=== PATIENT | male | born 1940 | race Caucasian/White ===

== ENCOUNTER → 2017-09-18 | Outpatient (CLI) | payer MEDICARE, OTHER | END | disposition home or self-care (01) | LOC: KCIC US 09:24 | DX: R42 Dizziness and giddiness (principal); R55 Syncope and collapse; E11.42 Type 2 diabetes mellitus with diabetic polyneuropathy; Z87.01 Personal history of pneumonia (recurrent); Z87.891 Personal history of nicotine dependence | CPT/HCPCS: 93880 ==

== ENCOUNTER 2018-02-12 10:29 | Observation (INO) | payer MEDICARE, OTHER ==
[~2018-02-12] VITALS: Ht 152.4 cm; Wt 106.6 kg
[~2018-02-12 10:29] MED LIST: ASCO500C PO; ASPI-630 PO; CALC480G PO; CHOL100013 PO; DIPH25CA58 PO; ESOM20CA PO; GABA-586 PO; GLUC1TAB71 PO; MULT-208 PO; OXYC1TAB7 PO; VIT1TABL PO
[2018-02-12] MEDS ORDERED: CALCIUM GLUCONATE 1,000 MG/10 ML VIAL. IVP ONE (11:00)
[2018-02-12 11:07] LABS: BASO % 0 % (0-3); EOS % 0 % (0-3); HEMATOCRIT 40.3 % (39.0-53.0); HEMOGLOBIN 13.9 g/dL (13.0-17.5); LYMPH # 0.3 x10^3/uL (1.0-4.8); LYMPH % 3 % (24-48); MEAN CORPUSCULAR HEMOGLOBIN 33 pg (25-35); MEAN CORPUSCULAR HGB CONC 34 g/dL (31-37); MEAN CORPUSCULAR VOLUME 95 fL (79-100); MONO # 1.4 x10^3/uL (0.0-1.1); MONO % 12 % (0-9); NEUT % 85 % (31-73); PLATELET COUNT 176 x10^3/uL (140-400); RED BLOOD COUNT 4.24 x10^6/uL (4.30-5.70); RED CELL DISTRIBUTION WIDTH 13.6 % (11.5-14.5); WHITE BLOOD COUNT 11.8 x10^3/uL (4.0-11.0)
[2018-02-12] MEDS ORDERED: IV NORMAL SALINE 1000ML BAG 1,000 ML IV ONE (11:15)
--- NOTE | 2018-02-12 11:20 | PDOC1 ---
History and Physical Date of Admission Date of Admission DATE: 02/12/18 TIME: 11:19 Identification/Chief Complaint Chief Complaint NOT MY PATIENT, NOTE IS VOID/ ERROR Past Medical History Past Medical History PAST MEDICAL HISTORY: cataracts, osteoarthritis, reduced hearing, peripheral neuropathy. prior DVT at an old port site. has hyperlipidemia, history of pneumonia, history of sleep apnea for which he has been treated with BiPAP. colorectal cancer in the past and polyps. 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 chemo in 2014 for his colon cancer and a port then has been removed. PAST SURGICAL HISTORY: Include cataract extractions, carpal tunnel repair, Lap-Band in 2010, colon resection in 2013, Noam-en-Y gastric bypass in 2012, cholecystectomy 1995, ventral and inguinal hernia repairs, hydrocele repair in 2004, right hip replacement in 2007. IMMUNIZATION: His flu vaccines are up-to-date, his pneumococcal vaccines is up-to-date. ALLERGIES: HE HAS ALLERGIES TO STATINS AND MEPERIDINE. HOME MEDICATIONS: Include gabapentin 300 mg t.i.d., Nexium 20 mg at bedtime, vitamin C daily, aspirin 81 mg daily, multivitamin daily, B complex vitamin daily and 1000 mg of vitamin D daily. FAMILY HISTORY: Noncontributory. SOCIAL HISTORY: Former smoker. Current Medications Current Medications Current Medications Calcium Gluconate (Calcium Gluconate) 1,000 mg 1X ONCE IVP Last administered on 02/12/18at 10:52; Start 02/12/18 at 11:00; Stop 02/12/18 at 11:01; Status DC Sodium Chloride 1,000 ml @ 1,000 mls/hr 1X ONCE IV Last administered on at 11:18; Start 02/12/18 at 11:15; Stop 02/12/18 at 12:14 Active Scripts Active Oxycodone-Acetaminophen 5-325 (Oxycodone Hcl/Acetaminophen) 1 Each Tablet 1 Tab PO PRN Q4HRS PRN Reported Gabapentin 300 Mg Capsule 300 Mg PO TID Nexium Capsule (Esomeprazole Magnesium) 20 Mg Capsule.dr 20 Mg PO DAILYAC Aspirin 81 Mg Tab.chew 1 Tab PO DAILY Vitamin D (Cholecalciferol (Vitamin D3)) 1,000 Unit Capsule 1 Cap PO DAILY Vitamin C (Ascorbic Acid) 500 Mg Capsule.er 500 Mg PO Brain Ujnjh-Kfh-Yu Q10 Tablet (Vit B Cmplx & C#11/Ca/Dha/Q10) 1 Each Tablet 1 Each PO Multi-Day Vitamins (Multivitamin) 1 Each Tablet 1 Tab PO DAILY Allergies Allergies: Coded Allergies: Oxfunud-Qmz-Bjx Reductase Inhibitor (Verified Allergy, Intermediate, body aches, 04/02/17) meperidine (Verified Allergy, Intermediate, Hallucinations, 04/02/17) VTE Prophylaxis Ordered VTE Prophylaxis Devices: Yes VTE Pharmacological Prophylaxi: Yes MIKAELA JONES MD Feb 12, 2018 11:20
--- NOTE | 2018-02-12 11:21 | RAD ---
Exam: AP portable chest History: Fever, weakness, confusion. Comparison: January 27, 2008. Findings: The heart and mediastinal structures are within normal limits for size. Lungs are without infiltrate. No pleural effusion or pneumothorax is identified. Old right clavicular fracture is seen. Impression: 1. No acute cardiopulmonary process. Electronically signed by: Mor Ramirez MD (02/12/2018 11:17 AM) [place] [id number]
--- NOTE | 2018-02-12 11:43 | RAD ---
CT of the head without contrast, 02/12/2018: HISTORY: Confusion, memory loss The lateral and third ventricles are moderately dilated. The degree of ventricular dilatation appears out of proportion relative to the mild degree of cerebral atrophy. There is no shift of the midline structures. There is no evidence of acute intracranial hemorrhage or mass effect. Several faint bilateral deep white matter lucencies are noted compatible with chronic ischemic change. IMPRESSION: 1. Mild bilateral deep white matter lucencies compatible with chronic ischemic change. 2. Ventricular dilatation appears out of proportion relative to the degree of cerebral atrophy raising the possibility of normal pressure hydrocephalus. 3. No acute intracranial abnormality is detected. PQRS Compliance Statement: One or more of the following individualized dose reduction techniques were utilized for this examination: 1. Automated exposure control 2. Adjustment of the mA and/or kV according to patient size 3. Use of iterative reconstruction technique Electronically signed by: Armani Young MD (02/12/2018 11:39 AM) [facility]
[2018-02-12 11:48] LABS: % BANDS 15 % (0-9); % LYMPHS 2 % (24-48); % MONOS 7 % (0-10); % SEGS 76 % (35-66); ANISOCYTOSIS SLIGHT; PLT ESTIMATE ADEQUATE (ADEQUATE)
[2018-02-12 11:51] LABS: CALCIUM 9.2 mg/dL (8.5-10.1)
[2018-02-12 11:52] LABS: CREATININE 0.9 mg/dL (0.7-1.3); GFR 81.6; MAGNESIUM 1.8 mg/dL (1.8-2.4); POTASSIUM 3.7 mmol/L (3.5-5.1)
--- NOTE | 2018-02-12 11:56 | PHYS DOC ---
Past Medical History Past Medical History: Cancer Additional Past Medical Histor: Neuropathy, prostate/colon cancer Past Surgical History: Cancer Surgery, Colectomy, Hip Replacement Additional Past Surgical Histo: Hernia Alcohol Use: Occasionally Drug Use: None Adult General Chief Complaint Chief Complaint: MECHANICAL FALL HPI HPI Patient is a 77 year old male who presents with generalized weakness. Patient to the between his bed and the wall earlier today. He states he was unable to get himself up from that position. The patient called EMS also earlier this morning when he felt he could not get out of bed because he was too weak. At that time, he was assisted to a chair but decided not to come to the emergency room. The patient did not sustain injury during the fall. He has no complaints of pain. At baseline, this patient is able to play 18 holes of golf so this represents a significant change. He has no recent illness and no reported fever or chills or he has not had a cough. He denies chest pain or dyspnea or orthopnea with exertion. The patient has not had similar symptoms in the past. Review of Systems Review of Systems Constitutional: Denies fever Eyes: Denies change in visual acuity HENT: Denies nasal congestion Respiratory: Denies cough or shortness of breath Cardiovascular: No additional information GI: Denies abdominal pain, nausea, vomiting Musculoskeletal: Denies back pain Integument: Denies rash Neurologic: Denies headache or focal neuro complaints All other systems were reviewed and found to be within normal limits, except as documented in this note. Current Medications Current Medications Current Medications Medications (Trade) Dose Ordered Sig/[facility] Start Time Stop Time Status Last Admin Dose Admin Calcium Gluconate (Calcium Gluconate) 1,000 mg 1X ONCE 02/12/18 11:00 02/12/18 11:01 DC 02/12/18 10:52 1,000 MG Sodium Chloride 500 ml @ 500 mls/hr 1X ONCE 02/12/18 13:45 02/12/18 14:44 DC 02/12/18 13:45 500 MLS/HR Allergies Allergies Allergies Coded Allergies Type Severity Reaction Last Updated Verified Zsbofwl-Ezw-Nde Reductase Inhibitor Allergy Intermediate body aches 04/02/17 Yes meperidine Allergy Intermediate Hallucinations 04/02/17 Yes Physical Exam Physical Exam Constitutional: Well developed, well nourished, no acute distress, non-toxic appearance HENT: Normocephalic, atraumatic, bilateral external ears normal, oropharynx moist Eyes: PERRLA, EOMI, conjunctiva normal, no discharge Neck: Normal range of motion Cardiovascular:Heart rate regular rhythm, no murmur Lungs & Thorax: Bilateral breath sounds clear to auscultation Abdomen: Bowel sounds normal, soft, no tenderness Skin: Warm, dry, no erythema, no rash Back: No tenderness, no CVA tenderness Extremities: No edema Neurologic: Alert and oriented X 3 Psychologic: Affect normal Current Patient Data Vital Signs Vital Signs Date Time Temp Pulse Resp B/P (MAP) Pulse Ox O2 Delivery O2 Flow Rate FiO2 02/12/18 13:15 86 18 96 02/12/18 10:30 100.1 142/63 (89) Room Air 100.1 Lab Values Laboratory Tests Test 02/12/18 10:47 02/12/18 13:43 White Blood Count 11.8 x10^3/uL (4.0-11.0) H Red Blood Count 4.24 x10^6/uL (4.30-5.70) L Hemoglobin 13.9 g/dL (13.0-17.5) Hematocrit 40.3 % (39.0-53.0) Mean Corpuscular Volume 95 fL (79-100) Mean Corpuscular Hemoglobin 33 pg (25-35) Mean Corpuscular Hemoglobin Concent 34 g/dL (31-37) Red Cell Distribution Width 13.6 % (11.5-14.5) Platelet Count 176 x10^3/uL (140-400) Neutrophils (%) (Auto) 85 % (31-73) H Lymphocytes (%) (Auto) 3 % (24-48) L Monocytes (%) (Auto) 12 % (0-9) H Eosinophils (%) (Auto) 0 % (0-3) Basophils (%) (Auto) 0 % (0-3) Neutrophils # (Auto) 10.0 x10^3uL (1.8-7.7) H Lymphocytes # (Auto) 0.3 x10^3/uL (1.0-4.8) L Monocytes # (Auto) 1.4 x10^3/uL (0.0-1.1) H Eosinophils # (Auto) 0.0 x10^3/uL (0.0-0.7) Basophils # (Auto) 0.0 x10^3/uL (0.0-0.2) Segmented Neutrophils % 76 % (35-66) H Band Neutrophils % 15 % (0-9) H Lymphocytes % 2 % (24-48) L Monocytes % 7 % (0-10) Platelet Estimate Adequate (ADEQUATE) Anisocytosis Slight Sodium Level 145 mmol/L (136-145) Potassium Level 3.7 mmol/L (3.5-5.1) Chloride Level 107 mmol/L (98-107) Carbon Dioxide Level 27 mmol/L (21-32) Anion Gap 11 (6-14) Blood Urea Nitrogen 13 mg/dL (8-26) Creatinine 0.9 mg/dL (0.7-1.3) Estimated GFR (Cockcroft-Gault) 81.6 Glucose Level 123 mg/dL (70-99) H Lactic Acid Level 2.5 mmol/L (0.4-2.0) H Calcium Level 9.2 mg/dL (8.5-10.1) Phosphorus Level 2.7 mg/dL (2.6-4.7) Magnesium Level 1.8 mg/dL (1.8-2.4) Troponin I Quantitative < 0.017 ng/mL (0.000-0.055) PW-Otk-S-Type Natriuretic Peptide 350 pg/mL (0-449) Urine Collection Type Unknown Urine Color Yellow Urine Clarity Clear Urine pH 6.5 Urine Specific [place] 1.020 Urine Protein Negative mg/dL (NEG-TRACE) Urine Glucose (UA) Negative mg/dL (NEG) Urine Ketones (Stick) Negative mg/dL (NEG) Urine Blood Negative (NEG) Urine Nitrite Negative (NEG) Urine Bilirubin Negative (NEG) Urine Urobilinogen Dipstick 1.0 mg/dL (0.2 mg/dL) Urine Leukocyte Esterase Negative (NEG) Urine RBC 0 /HPF (0-2) Urine WBC 0 /HPF (0-4) Urine Bacteria 0 /HPF (0-FEW) Urine Mucus Slight /LPF Laboratory Tests 02/12/18 10:47 Laboratory Tests 02/12/18 10:47 EKG EKG Sinus rhythm, no STEMI Radiology/Procedures Radiology/Procedures PCXR: Normal Head CT: HISTORY: Confusion, memory loss The lateral and third ventricles are moderately dilated. The degree of ventricular dilatation appears out of proportion relative to the mild degree of cerebral atrophy. There is no shift of the midline structures. There is no evidence of acute intracranial hemorrhage or mass effect. Several faint bilateral deep white matter lucencies are noted compatible with chronic ischemic change. IMPRESSION: 1. Mild bilateral deep white matter lucencies compatible with chronic ischemic change. 2. Ventricular dilatation appears out of proportion relative to the degree of cerebral atrophy raising the possibility of normal pressure hydrocephalus. 3. No acute intracranial abnormality is detected. Course & Med Decision Making Course & Med Decision Making Pertinent Labs and Imaging studies reviewed. (See chart for details) Patient was evaluated in the emergency department after he was found to be stuck between his bed and the wall and his bedroom at home. He was simply too weak to get off the floor. This represents a significant change for this patient compared to baseline. He did not have chest pain or shortness of breath. The patient really had a negative review of systems otherwise. He was able to play golf yesterday. In the emergency department, he did have some improvement in his symptoms after IV fluids. He was at one point able to ambulate and endorsed that he felt at baseline. The patient continued to deny complaints, however, even when he was unable to walk. EKG was abnormal with some elevation in aVR. The patient had no reports of chest pain or shortness of breath. His primary complaint was generalized weakness and gait disturbance. Cardiology consult was placed for evaluation. His troponin was not elevated. CT scan of the head was revealing for possible ventricular dilatation which could be new. There is no old for comparison. This raises some concern for normal pressure hydrocephalus. The patient did have some forgetfulness but no new acute mental status change. He was ambulated in the department initially and seemed to do okay. A second attempt, however revealed that the patient was definitely unsteady on his feet. At some urinary incontinence in the emergency department although he relates that he has this at baseline. I did speak to the patient's primary care physician about admitting and she was agreeable to admit this patient. Consult was placed for neurology to evaluate also. Patient was agreeable to the admission plan of care. Dragon Disclaimer Dragon Disclaimer This electronic medical record was generated, in whole or in part, using a voice recognition dictation system. Departure Departure Referrals: ALTON MONTEZ MD (PCP) MARTIN PEDERSON DO Feb 12, 2018 11:56
--- NOTE | 2018-02-12 11:56 | EKG ---
[facility] [address] [place] [address] Test Date: 2018-02-12 Test Time: 10:39:12 Pat Name: DENAE BARNES Department: Room: Gender: M Office Secretary: : 1940 Requested By: MARTIN PEDERSON Order Number: [id number] Reading MD: Trent Paredes Measurements Intervals [place] Rate: 87 P: 51 ME: 168 QRS: 19 QRSD: 68 T: -7 QT: 380 QTc: 458 Interpretive Statements SINUS RHYTHM LOW LIMB LEAD VOLTAGE ST ABNORMALITY, POSSIBLE HIGH LATERAL SUBENDOCARDIAL INJURY ABNORMAL ECG RI6.01 No previous ECG available for comparison Electronically Signed On 02-13-2018 15:19:47 CDT by Trent Paredes
[2018-02-12] MEDS ORDERED: IV NORMAL SALINE 500ML BAG 500 ML IV ONE ×2 (12:30→13:45)
[2018-02-12] MEDS ORDERED: NAPR220C4 PO (12:45)
[2018-02-12] MEDS ORDERED: PYRI200T3 PO (12:53)
[2018-02-12] MEDS ORDERED: CYAN100072 PO (12:53)
[2018-02-12] MEDS ORDERED: DIPH25CA3 PO (12:55)
[2018-02-12] MEDS ORDERED: DIPH25TA24 PO (12:56)
[2018-02-12] MEDS ORDERED: MULT1TAB52 PO (13:04)
[2018-02-12 13:52] LABS: BILIRUBIN,URINE NEGATIVE (NEG); CLARITY,URINE CLEAR; COLOR,URINE YELLOW; NITRITE,URINE NEGATIVE (NEG); PH,URINE 6.5; PROTEIN,URINE NEGATIVE (NEG-TRACE)
[2018-02-12 14:00] LABS: BACTERIA,URINE 0 /HPF (0-FEW); RBC,URINE 0 /HPF (0-2); WBC,URINE 0 /HPF (0-4)
[2018-02-12] MEDS ORDERED: ONDANSETRON PF 4 MG/2 ML VIAL. IV PRN (15:15)
[2018-02-12] MEDS: IV NORMAL SALINE 1000ML BAG 1,000 ML IV SCH ×2 (15:30→15:31)
--- NOTE | 2018-02-12 16:15 | RAD ---
MRI of the brain without contrast 02/12/2018 Clinical History: Confusion and memory loss. Technique: Unenhanced T1-weighted sagittal and axial, T2-weighted axial and coronal and FLAIR, gradient echo and diffusion-weighted axial images of the brain were obtained. Findings: Comparison is made to patient's CT scan of the head dated 02/12/2018. Images from the study are degraded by patient motion. There is generalized parenchymal atrophy. Prominence of both lateral ventricles is seen which is felt to most likely reflect central atrophy as the temporal horns are not significantly dilated. Patchy, confluent and multiple focal areas of increased signal intensity are seen within the periventricular and subcortical white matter of both cerebral hemispheres on the FLAIR and T2-weighted images consistent with areas of small vessel ischemic disease. No acute parenchymal abnormality is seen. No extra-axial fluid collection is seen. There is no MRI evidence of acute ischemia/infarction. Mild to moderate mucosal thickening in seen scattered throughout the paranasal sinuses. There is a minimal right mastoid effusion. Small to moderate-sized left mastoid effusion is seen. Normal flow voids are seen within the major vascular structures surrounding the brain parenchyma. Impression: No acute parenchymal abnormality is seen. Electronically signed by: Kevin Jaime MD (02/12/2018 4:12 PM) [id number]
--- NOTE | 2018-02-12 16:31 | EKG ---
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 ABNORMAL ECG RI6.01 No previous ECG available for comparison Electronically Signed On 02-13-2018 15:24:52 CDT by Trent Paredes
--- NOTE | 2018-02-12 16:46 | PDOC2 ---
NEUROLOGY CONSULT Date of Admission Date of Admission DATE: 02/12/18 TIME: 16:36 Reason for Consult Reason for Consult: Weakness, possible normal pressure hydrocephalus Referring Physician Referring Physician: Dr. Peter/Dr. Covington Source Source: Caregiver, Chart review, Patient History of Present Illness History of Present Illness The patient is a 77-year-old right-handed male who played 18 holes of golf yesterday and today could not get off the floor after he rolled out of bed. He feels weak all over. He has history of peripheral neuropathy from chemotherapy. He also has diabetes which abated after gastric bypass. He denies any history of stroke, seizure, head injury, neck pain, back pain. He does have occasional incontinence from his history of prostate cancer. He has had some memory loss. He is feeling stronger this afternoon. He cannot figure out what may have caused the problem. Past Medical History Cardiovascular: HTN, Hyperlipidemia, Other (thrombosis at chemotherapy port site) Pulmonary: Pneumonia, Other (sleep apnea) CENTRAL NERVOUS SYSTEM: Periperal neuropathy GI: GERD Heme/Onc: Cancer (colon and prostate) Musculoskeletal: low back pain Renal/: Prostate Ca., Other (epididymitis) Endocrine: Diabetes Past Surgical History Past Surgical History: Cholecystectomy, Cataract Removal, Hernia Repair ( ventral and inguinal), Total hip replacement, Colon Resection, Other (carpal tunnel, prostate, lap band, colonic polyps, gastric bypass, hydrocele, IVC filter) Family History Family History: Cancer Social History Social History , 2 glasses of wine a month, ex-smoker, retired Current Medications Current Medications Current Medications Calcium Gluconate (Calcium Gluconate) 1,000 mg 1X ONCE IVP Last administered on 02/12/18at 10:52; Start 02/12/18 at 11:00; Stop 02/12/18 at 11:01; Status DC Sodium Chloride 1,000 ml @ 1,000 mls/hr 1X ONCE IV Last administered on at 11:18; Start 02/12/18 at 11:15; Stop 02/12/18 at 12:14; Status DC Sodium Chloride 500 ml @ 500 mls/hr 1X ONCE IV Last administered on at 12:59; Start 02/12/18 at 12:30; Stop 02/12/18 at 13:29; Status DC Sodium Chloride 500 ml @ 500 mls/hr 1X ONCE IV Last administered on at 13:45; Start 02/12/18 at 13:45; Stop 02/12/18 at 14:44; Status DC Ondansetron HCl (Zofran) 4 mg PRN Q8HRS PRN IV NAUSEA/VOMITING; Start 02/12/18 at 15:15; Stop 02/13/18 at 15:14 Sodium Chloride 1,000 ml @ 75 mls/hr [id number] IV ; Start 02/12/18 at 15:30; Stop 02/13/18 at 15:29 Active Scripts Active Reported Multivitamins (Multivitamin) 1 Each Tablet 1 Tab PO DAILY Diphenhydramine Hcl 25 Mg Tablet 25 Mg PO PRN B-12 (Cyanocobalamin (Vitamin B-12)) 1,000 Mcg Tablet 1,000 Mcg PO B-6 (Pyridoxine HCl (Vitamin B6)) 200 Mg Tablet.er 200 Mg PO Aleve (Naproxen Sodium) 220 Mg Capsule 220 Mg PO BID PRN MDD 3 tablets 14 Days Gabapentin 300 Mg Capsule 300 Mg PO TID Nexium Capsule (Esomeprazole Magnesium) 20 Mg Capsule.dr 20 Mg PO DAILYAC Aspirin 81 Mg Tab.chew 1 Tab PO DAILY Vitamin D (Cholecalciferol (Vitamin D3)) 1,000 Unit Capsule 1 Cap PO DAILY Allergies Allergies: Coded Allergies: Gitsgvs-Zny-Pka Reductase Inhibitor (Verified Allergy, Intermediate, body aches, 04/02/17) meperidine (Verified Allergy, Intermediate, Hallucinations, 04/02/17) ROS Review of System Patient denies fevers, chills, weight loss, dyspnea, angina, abdominal pain, change in bowels, or dysuria. 14-point review of systems is negative. Physical Exam Physical Examination General: Well-developed, well-nourished, white male, in no acute distress HEENT: Normocephalic andatraumatic. .Temporal arteriespulsatile and nontender. Fundoscopic exam unremarkable Neck: Supple without bruit, no meningismus Musculoskeletal: Stability:see neurologic. Gait exam:see neurologic. Tone:see neurologic. Strength:see neurologic. Neurological: Mental Status:intact, orientation, memory, attention span/concentration, language, fund of knowledge normal. Cranial Nerves:Pupils equal and reactive to light, extraocular movements areintact, visual momin are full to confrontation. Facial sensation is normal. There is no facial asymmetry. Vestibulo-ocular reflex is intact. Palate elevates and tongue protrudes in midline. All other cranial related problems are negative except as mentioned before.Reflexes:0-1+ and symmetric with flexor plantar responses. Motor:5/5 strength with normal tone and bulk. Coordination:Finger-nose finger and heel-to -angel testing are normal. Rapid alternating movements and fine finger movements are intact. Gait:Severely apraxic, can barely take a few steps. Sensory: Stocking loss. Vitals VITALS Vital Signs Date Time Temp Pulse Resp B/P (MAP) Pulse Ox O2 Delivery O2 Flow Rate FiO2 02/12/18 14:43 89 18 96 02/12/18 10:30 100.1 142/63 (89) Room Air 100.1 Labs Labs Laboratory Tests Test 02/12/18 10:47 02/12/18 13:43 White Blood Count 11.8 x10^3/uL (4.0-11.0) Red Blood Count 4.24 x10^6/uL (4.30-5.70) Hemoglobin 13.9 g/dL (13.0-17.5) Hematocrit 40.3 % (39.0-53.0) Mean Corpuscular Volume 95 fL (79-100) Mean Corpuscular Hemoglobin 33 pg (25-35) Mean Corpuscular Hemoglobin Concent 34 g/dL (31-37) Red Cell Distribution Width 13.6 % (11.5-14.5) Platelet Count 176 x10^3/uL (140-400) Neutrophils (%) (Auto) 85 % (31-73) Lymphocytes (%) (Auto) 3 % (24-48) Monocytes (%) (Auto) 12 % (0-9) Eosinophils (%) (Auto) 0 % (0-3) Basophils (%) (Auto) 0 % (0-3) Neutrophils # (Auto) 10.0 x10^3uL (1.8-7.7) Lymphocytes # (Auto) 0.3 x10^3/uL (1.0-4.8) Monocytes # (Auto) 1.4 x10^3/uL (0.0-1.1) Eosinophils # (Auto) 0.0 x10^3/uL (0.0-0.7) Basophils # (Auto) 0.0 x10^3/uL (0.0-0.2) Segmented Neutrophils % 76 % (35-66) Band Neutrophils % 15 % (0-9) Lymphocytes % 2 % (24-48) Monocytes % 7 % (0-10) Platelet Estimate Adequate (ADEQUATE) Anisocytosis Slight Sodium Level 145 mmol/L (136-145) Potassium Level 3.7 mmol/L (3.5-5.1) Chloride Level 107 mmol/L (98-107) Carbon Dioxide Level 27 mmol/L (21-32) Anion Gap 11 (6-14) Blood Urea Nitrogen 13 mg/dL (8-26) Creatinine 0.9 mg/dL (0.7-1.3) Estimated GFR (Cockcroft-Gault) 81.6 Glucose Level 123 mg/dL (70-99) Lactic Acid Level 2.5 mmol/L (0.4-2.0) Calcium Level 9.2 mg/dL (8.5-10.1) Phosphorus Level 2.7 mg/dL (2.6-4.7) Magnesium Level 1.8 mg/dL (1.8-2.4) Troponin I Quantitative < 0.017 ng/mL (0.000-0.055) UC-Wqu-P-Type Natriuretic Peptide 350 pg/mL (0-449) Urine Collection Type Unknown Urine Color Yellow Urine Clarity Clear Urine pH 6.5 Urine Specific [place] 1.020 Urine Protein Negative mg/dL (NEG-TRACE) Urine Glucose (UA) Negative mg/dL (NEG) Urine Ketones (Stick) Negative mg/dL (NEG) Urine Blood Negative (NEG) Urine Nitrite Negative (NEG) Urine Bilirubin Negative (NEG) Urine Urobilinogen Dipstick 1.0 mg/dL (0.2 mg/dL) Urine Leukocyte Esterase Negative (NEG) Urine RBC 0 /HPF (0-2) Urine WBC 0 /HPF (0-4) Urine Bacteria 0 /HPF (0-FEW) Urine Mucus Slight /LPF Laboratory Tests Test 02/12/18 10:47 02/12/18 13:43 White Blood Count 11.8 x10^3/uL (4.0-11.0) Red Blood Count 4.24 x10^6/uL (4.30-5.70) Hemoglobin 13.9 g/dL (13.0-17.5) Hematocrit 40.3 % (39.0-53.0) Mean Corpuscular Volume 95 fL (79-100) Mean Corpuscular Hemoglobin 33 pg (25-35) Mean Corpuscular Hemoglobin Concent 34 g/dL (31-37) Red Cell Distribution Width 13.6 % (11.5-14.5) Platelet Count 176 x10^3/uL (140-400) Neutrophils (%) (Auto) 85 % (31-73) Lymphocytes (%) (Auto) 3 % (24-48) Monocytes (%) (Auto) 12 % (0-9) Eosinophils (%) (Auto) 0 % (0-3) Basophils (%) (Auto) 0 % (0-3) Neutrophils # (Auto) 10.0 x10^3uL (1.8-7.7) Lymphocytes # (Auto) 0.3 x10^3/uL (1.0-4.8) Monocytes # (Auto) 1.4 x10^3/uL (0.0-1.1) Eosinophils # (Auto) 0.0 x10^3/uL (0.0-0.7) Basophils # (Auto) 0.0 x10^3/uL (0.0-0.2) Segmented Neutrophils % 76 % (35-66) Band Neutrophils % 15 % (0-9) Lymphocytes % 2 % (24-48) Monocytes % 7 % (0-10) Platelet Estimate Adequate (ADEQUATE) Anisocytosis Slight Sodium Level 145 mmol/L (136-145) Potassium Level 3.7 mmol/L (3.5-5.1) Chloride Level 107 mmol/L (98-107) Carbon Dioxide Level 27 mmol/L (21-32) Anion Gap 11 (6-14) Blood Urea Nitrogen 13 mg/dL (8-26) Creatinine 0.9 mg/dL (0.7-1.3) Estimated GFR (Cockcroft-Gault) 81.6 Glucose Level 123 mg/dL (70-99) Lactic Acid Level 2.5 mmol/L (0.4-2.0) Calcium Level 9.2 mg/dL (8.5-10.1) Phosphorus Level 2.7 mg/dL (2.6-4.7) Magnesium Level 1.8 mg/dL (1.8-2.4) Troponin I Quantitative < 0.017 ng/mL (0.000-0.055) IY-Jjj-K-Type Natriuretic Peptide 350 pg/mL (0-449) Urine Collection Type Unknown Urine Color Yellow Urine Clarity Clear Urine pH 6.5 Urine Specific [place] 1.020 Urine Protein Negative mg/dL (NEG-TRACE) Urine Glucose (UA) Negative mg/dL (NEG) Urine Ketones (Stick) Negative mg/dL (NEG) Urine Blood Negative (NEG) Urine Nitrite Negative (NEG) Urine Bilirubin Negative (NEG) Urine Urobilinogen Dipstick 1.0 mg/dL (0.2 mg/dL) Urine Leukocyte Esterase Negative (NEG) Urine RBC 0 /HPF (0-2) Urine WBC 0 /HPF (0-4) Urine Bacteria 0 /HPF (0-FEW) Urine Mucus Slight /LPF Images Images MRI brain: Images from the study are degraded by patient motion. There is generalized parenchymal atrophy. Prominence of both lateral ventricles is seen which is felt to most likely reflect central atrophy as the temporal horns are not significantly dilated. Patchy, confluent and multiple focal areas of increased signal intensity are seen within the periventricular and subcortical white matter of both cerebral hemispheres on the FLAIR and T2-weighted images consistent with areas of small vessel ischemic disease. No acute parenchymal abnormality is seen. No extra-axial fluid collection is seen. There is no MRI evidence of acute ischemia/infarction. Mild to moderate mucosal thickening in seen scattered throughout the paranasal sinuses. There is a minimal right mastoid effusion. Small to moderate-sized left mastoid effusion is seen. Normal flow voids are seen within the major vascular structures surrounding the brain parenchyma. Impression: No acute parenchymal abnormality is seen. Assessment/Plan Assessment/Plan Impression: The head CT raises the possibility of normal pressure hydrocephalus, but I reviewed the MRI, and this looks like ex-vacuo dilatation of the ventricles. I do not believe he has normal pressure hydrocephalus. Severe neuropathy, diabetes, chemotherapy, rule out other causes. 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 Recommendations: MRI of the cervical spine Echocardiogram Carotid Doppler studies Laboratory studies, see orders Rehabilitation modalities Further recommendations depending on the results of the studies. I discussed with the patient and his . Thank you for letting me help with the patient's care. DENAE ALANIS MD Feb 12, 2018 16:46
[2018-02-12 17:05] VITALS: BP 124/40
[2018-02-12 18:50] VITALS: BP 133/55
[2018-02-12] MEDS ORDERED: ACETAMINOPHEN 500 MG TABLET PO PRN (19:45)
[2018-02-12] MEDS ORDERED: INFLUENZA VAX SCREEN BY RX. MC ONE (20:15)
[2018-02-12] MEDS: GABAPENTIN 300 MG CAPSULE. PO SCH (21:42)
[2018-02-12 23:00] VITALS: BP 112/51
[2018-02-13 03:00] VITALS: BP 123/81
[2018-02-13 07:00] VITALS: BP 113/53
[2018-02-13 08:08] LABS: BASO % 0 % (0-3); EOS # 0.1 x10^3/uL (0.0-0.7); EOS % 1 % (0-3); LYMPH % 10 % (24-48); MEAN CORPUSCULAR HEMOGLOBIN 33 pg (25-35); MEAN CORPUSCULAR HGB CONC 34 g/dL (31-37); MEAN CORPUSCULAR VOLUME 96 fL (79-100); MONO # 1.2 x10^3/uL (0.0-1.1); MONO % 13 % (0-9); NEUT # 7.2 x10^3uL (1.8-7.7); NEUT % 76 % (31-73); PLATELET COUNT 155 x10^3/uL (140-400); RED BLOOD COUNT 3.66 x10^6/uL (4.30-5.70); RED CELL DISTRIBUTION WIDTH 13.7 % (11.5-14.5); WHITE BLOOD COUNT 9.5 x10^3/uL (4.0-11.0)
[2018-02-13] MEDS ORDERED: FLUT16SP NS (08:20)
[2018-02-13 08:27] LABS: CALCIUM 8.3 mg/dL (8.5-10.1); CREATININE 0.7 mg/dL (0.7-1.3); GFR 109.1; POTASSIUM 3.7 mmol/L (3.5-5.1)
--- NOTE | 2018-02-13 08:28 | PDOC ---
PROGRESS NOTES Subjective Subjective Patient states he feels better than he did at admission, admits his gait is weak. Objective Objective Vital Signs Date Time Temp Pulse Resp B/P (MAP) Pulse Ox O2 Delivery O2 Flow Rate FiO2 02/13/18 07:00 97.9 57 20 113/53 (73) 95 Room Air 97.9 Intake and Output 02/13/18 07:00 Intake Total 2150 ml Output Total 350 ml Balance 1800 ml Intake Oral 150 ml IV Total 2000 ml Output Urine Total 350 ml # Voids 3 Physical Exam Abdomen: Normal bowel sounds, Soft, No tenderness Heart: Regular rate Extremities: No edema General: Alert, Oriented X3, No acute distress Lungs: Clear to auscultation Assessment Assessment Problems Medical Problems: (1) Dehydration Status: Acute (2) Generalized weakness Status: Acute Plan Plan of Care 1. Febrile illness with sepsis - CXR clear, urine unremarkable, no localizing symptoms. Suspect viral illness. Blood cultures pending. Continue to monitor. 2. weakness with apraxic gait - MRI brain with small vessel disease but no acute findings. PT and OT ordered, further evaluation per Dr Sandhu. 3. DM2 - diet-controlled for patient. 4. AR - MRI showed some sinus congestion but patient denies pain. Continue Flonase daily as patient feels symptoms are good with this. 5. LAXMI - home CPAP. 6. hx prostate cancer - treated with XRT and Lupron injections. Comment Review of Relevant I have reviewed the following items davy (where applicable) has been applied. Labs Laboratory Tests Test 02/12/18 10:47 02/12/18 13:43 White Blood Count 11.8 x10^3/uL (4.0-11.0) Red Blood Count 4.24 x10^6/uL (4.30-5.70) Hemoglobin 13.9 g/dL (13.0-17.5) Hematocrit 40.3 % (39.0-53.0) Mean Corpuscular Volume 95 fL (79-100) Mean Corpuscular Hemoglobin 33 pg (25-35) Mean Corpuscular Hemoglobin Concent 34 g/dL (31-37) Red Cell Distribution Width 13.6 % (11.5-14.5) Platelet Count 176 x10^3/uL (140-400) Neutrophils (%) (Auto) 85 % (31-73) Lymphocytes (%) (Auto) 3 % (24-48) Monocytes (%) (Auto) 12 % (0-9) Eosinophils (%) (Auto) 0 % (0-3) Basophils (%) (Auto) 0 % (0-3) Neutrophils # (Auto) 10.0 x10^3uL (1.8-7.7) Lymphocytes # (Auto) 0.3 x10^3/uL (1.0-4.8) Monocytes # (Auto) 1.4 x10^3/uL (0.0-1.1) Eosinophils # (Auto) 0.0 x10^3/uL (0.0-0.7) Basophils # (Auto) 0.0 x10^3/uL (0.0-0.2) Segmented Neutrophils % 76 % (35-66) Band Neutrophils % 15 % (0-9) Lymphocytes % 2 % (24-48) Monocytes % 7 % (0-10) Platelet Estimate Adequate (ADEQUATE) Anisocytosis Slight Sodium Level 145 mmol/L (136-145) Potassium Level 3.7 mmol/L (3.5-5.1) Chloride Level 107 mmol/L (98-107) Carbon Dioxide Level 27 mmol/L (21-32) Anion Gap 11 (6-14) Blood Urea Nitrogen 13 mg/dL (8-26) Creatinine 0.9 mg/dL (0.7-1.3) Estimated GFR (Cockcroft-Gault) 81.6 Glucose Level 123 mg/dL (70-99) Lactic Acid Level 2.5 mmol/L (0.4-2.0) Calcium Level 9.2 mg/dL (8.5-10.1) Phosphorus Level 2.7 mg/dL (2.6-4.7) Magnesium Level 1.8 mg/dL (1.8-2.4) Troponin I Quantitative < 0.017 ng/mL (0.000-0.055) HM-Ura-V-Type Natriuretic Peptide 350 pg/mL (0-449) Urine Collection Type Unknown Urine Color Yellow Urine Clarity Clear Urine pH 6.5 Urine Specific [place] 1.020 Urine Protein Negative mg/dL (NEG-TRACE) Urine Glucose (UA) Negative mg/dL (NEG) Urine Ketones (Stick) Negative mg/dL (NEG) Urine Blood Negative (NEG) Urine Nitrite Negative (NEG) Urine Bilirubin Negative (NEG) Urine Urobilinogen Dipstick 1.0 mg/dL (0.2 mg/dL) Urine Leukocyte Esterase Negative (NEG) Urine RBC 0 /HPF (0-2) Urine WBC 0 /HPF (0-4) Urine Bacteria 0 /HPF (0-FEW) Urine Mucus Slight /LPF Laboratory Tests Test 02/12/18 10:47 02/12/18 13:43 White Blood Count 11.8 x10^3/uL (4.0-11.0) Red Blood Count 4.24 x10^6/uL (4.30-5.70) Hemoglobin 13.9 g/dL (13.0-17.5) Hematocrit 40.3 % (39.0-53.0) Mean Corpuscular Volume 95 fL (79-100) Mean Corpuscular Hemoglobin 33 pg (25-35) Mean Corpuscular Hemoglobin Concent 34 g/dL (31-37) Red Cell Distribution Width 13.6 % (11.5-14.5) Platelet Count 176 x10^3/uL (140-400) Neutrophils (%) (Auto) 85 % (31-73) Lymphocytes (%) (Auto) 3 % (24-48) Monocytes (%) (Auto) 12 % (0-9) Eosinophils (%) (Auto) 0 % (0-3) Basophils (%) (Auto) 0 % (0-3) Neutrophils # (Auto) 10.0 x10^3uL (1.8-7.7) Lymphocytes # (Auto) 0.3 x10^3/uL (1.0-4.8) Monocytes # (Auto) 1.4 x10^3/uL (0.0-1.1) Eosinophils # (Auto) 0.0 x10^3/uL (0.0-0.7) Basophils # (Auto) 0.0 x10^3/uL (0.0-0.2) Segmented Neutrophils % 76 % (35-66) Band Neutrophils % 15 % (0-9) Lymphocytes % 2 % (24-48) Monocytes % 7 % (0-10) Platelet Estimate Adequate (ADEQUATE) Anisocytosis Slight Sodium Level 145 mmol/L (136-145) Potassium Level 3.7 mmol/L (3.5-5.1) Chloride Level 107 mmol/L (98-107) Carbon Dioxide Level 27 mmol/L (21-32) Anion Gap 11 (6-14) Blood Urea Nitrogen 13 mg/dL (8-26) Creatinine 0.9 mg/dL (0.7-1.3) Estimated GFR (Cockcroft-Gault) 81.6 Glucose Level 123 mg/dL (70-99) Lactic Acid Level 2.5 mmol/L (0.4-2.0) Calcium Level 9.2 mg/dL (8.5-10.1) Phosphorus Level 2.7 mg/dL (2.6-4.7) Magnesium Level 1.8 mg/dL (1.8-2.4) Troponin I Quantitative < 0.017 ng/mL (0.000-0.055) NF-Lfp-D-Type Natriuretic Peptide 350 pg/mL (0-449) Urine Collection Type Unknown Urine Color Yellow Urine Clarity Clear Urine pH 6.5 Urine Specific [place] 1.020 Urine Protein Negative mg/dL (NEG-TRACE) Urine Glucose (UA) Negative mg/dL (NEG) Urine Ketones (Stick) Negative mg/dL (NEG) Urine Blood Negative (NEG) Urine Nitrite Negative (NEG) Urine Bilirubin Negative (NEG) Urine Urobilinogen Dipstick 1.0 mg/dL (0.2 mg/dL) Urine Leukocyte Esterase Negative (NEG) Urine RBC 0 /HPF (0-2) Urine WBC 0 /HPF (0-4) Urine Bacteria 0 /HPF (0-FEW) Urine Mucus Slight /LPF Medications Current Medications Calcium Gluconate (Calcium Gluconate) 1,000 mg 1X ONCE IVP Last administered on 02/12/18at 10:52; Start 02/12/18 at 11:00; Stop 02/12/18 at 11:01; Status DC Sodium Chloride 1,000 ml @ 1,000 mls/hr 1X ONCE IV Last administered on at 11:18; Start 02/12/18 at 11:15; Stop 02/12/18 at 12:14; Status DC Sodium Chloride 500 ml @ 500 mls/hr 1X ONCE IV Last administered on at 12:59; Start 02/12/18 at 12:30; Stop 02/12/18 at 13:29; Status DC Sodium Chloride 500 ml @ 500 mls/hr 1X ONCE IV Last administered on at 13:45; Start 02/12/18 at 13:45; Stop 02/12/18 at 14:44; Status DC Ondansetron HCl (Zofran) 4 mg PRN Q8HRS PRN IV NAUSEA/VOMITING; Start 02/12/18 at 15:15; Stop 02/13/18 at 15:14 Sodium Chloride 1,000 ml @ 75 mls/hr [id number] IV Last administered on at 15:31; Start 02/12/18 at 15:30; Stop 02/13/18 at 15:29 Acetaminophen (Tylenol) 1,000 mg PRN Q6HRS PRN PO FEVER Last administered on at 21:42; Start 02/12/18 at 19:45 Info (FLU VACCINE SCREEN per RX) 0.5 each 1X ONCE MC ; Start 02/12/18 at 20:15 ; Stop 02/12/18 at 20:16; Status UNV Influenza Virus Vaccine (Afluria Trivalent [id number] Syringe) 0.5 ml ONCE ONCE VAX IM ; Start 02/12/18 at 21:00; Stop 02/12/18 at 21:01; Status DC Gabapentin (Neurontin) 300 mg TID PO Last administered on 02/12/18at 21:42; Start 02/12/18 at 21:00 Active Scripts Active Fluticasone Propionate Nasal [place] (Fluticasone Propionate) 16 Gm [place].susp 2 [place] NS DAILY Reported Multivitamins (Multivitamin) 1 Each Tablet 1 Tab PO DAILY Diphenhydramine Hcl 25 Mg Tablet 25 Mg PO PRN B-12 (Cyanocobalamin (Vitamin B-12)) 1,000 Mcg Tablet 1,000 Mcg PO B-6 (Pyridoxine HCl (Vitamin B6)) 200 Mg Tablet.er 200 Mg PO Aleve (Naproxen Sodium) 220 Mg Capsule 220 Mg PO BID PRN MDD 3 tablets 14 Days Gabapentin 300 Mg Capsule 300 Mg PO TID Nexium Capsule (Esomeprazole Magnesium) 20 Mg Capsule.dr 20 Mg PO DAILYAC Aspirin 81 Mg Tab.chew 1 Tab PO DAILY Vitamin D (Cholecalciferol (Vitamin D3)) 1,000 Unit Capsule 1 Cap PO DAILY Vitals/I & O Vital Sign - Last 24 Hours 902/12/18 02/12/18 02/12/18 10:30 11:36 12:21 13:15 Temp 100.1 100.1 Pulse 85 83 87 86 Resp 18 14 16 18 B/P (MAP) 142/63 (89) Pulse Ox 92 93 95 96 O2 Delivery Room Air 02/12/18 02/12/18 02/12/18 02/12/18 14:43 17:05 18:50 19:44 Temp 100.0 102.4 100.0 102.4 Pulse 89 88 91 Resp 18 20 24 B/P (MAP) 124/40 (68) 133/55 (81) Pulse Ox 96 94 93 O2 Delivery Room Air Room Air Room Air 02/12/18 02/12/18 02/13/18 02/13/18 20:00 23:00 03:00 07:00 Temp 99.1 98.0 97.9 99.1 98.0 97.9 Pulse 60 55 57 Resp 20 20 20 B/P (MAP) 112/51 (71) 123/81 (95) 113/53 (73) Pulse Ox 95 98 95 O2 Delivery Room Air Room Air BiPAP/CPAP Room Air Intake and Output 02/12/18 02/12/18 02/13/18 15:00 23:00 07:00 Intake Total 2000 ml 150 ml Output Total 350 ml Balance 2000 ml 150 ml -350 ml ALTON MONTEZ MD Feb 13, 2018 08:28
[2018-02-13] MEDS ORDERED: NAPROXEN 250 MG TABLET PO PRN (08:45)
--- NOTE | 2018-02-13 09:02 | RAD ---
Examination: CHEST PA LATERAL History: INPATIENT. FEVER, SHORTNESS OF AIR. Hx SLEEP APNEA. PRIOR XRAY. Comparison/Correlation: 02/12/2019 Portable Chest X-ray Exam Findings: Frontal and lateral views of the chest were obtained. Heart size and pulmonary vasculature are normal. Calcific density at the posterior medial right lung base is stable compared to previous examinations. No pneumothorax. No infiltrate or effusion and interval. Old right clavicular fracture is present. Bony structures are otherwise grossly unremarkable for the patient's age. Right upper quadrant surgical clips are present. Impression: No active disease. Electronically signed by: Sim Herrera MD (02/13/2018 8:59 AM) [facility]
[2018-02-13] MEDS: GABAPENTIN 300 MG CAPSULE. PO SCH ×3 (09:06→20:21)
[2018-02-13] MEDS: PANTOPRAZOLE 40 MG TABLET.DR. PO SCH (09:06)
[2018-02-13] MEDS: ASPIRIN CHEWABLE 81 MG TABLET. PO SCH (09:06)
[2018-02-13] MEDS: MULTIVITAMIN with MINERAL TABLET. PO SCH (09:06)
[2018-02-13] MEDS: FLUTICASONE 50MCG/NASAL SPRAY 16GM BOTTLE. NS SCH (09:06)
[2018-02-13] MEDS: CYANOCOBALAMIN (VITAMIN B-12) 1,000 MCG TABLET. PO SCH (09:06)
--- NOTE | 2018-02-13 09:10 | RAD ---
Clinical Indications: Gait disorder. Exam : Carotid Duplex with Grayscale Ultrasound and Spectral and Color Doppler Analysis: PQRS Compliance Statement - Stenosis calculations for CT, MR and conventional angiography are based upon measurement of the distal ICA diameter in accordance with the NASCET methodology. Stenosis calculations for carotid ultrasound studies are derived from validated velocity criteria which are known to correlate with the NASCET methodology. Comparison study: None available. Findings: The common, internal and external carotid arteries were examined by grayscale, color and spectral Doppler ultrasound. Mild atherosclerotic calcifications identified in the bilateral carotid bulbs and the bilateral internal carotid arteries. Flow in both vertebral arteries was antegrade and normal. The following are the velocities and ratios in the carotid arteries on both sides: RIGHT ICA PV: 96cm/sec RIGHT CCA PV: 79cm/sec RIGHT ICA ED: 28cm/sec RIGHT IC/CCPV: 1.2 RIGHT VERTEBRAL: antegrade flow RIGHT % STENOSIS: Less than 50% LEFT ICA PV: 88cm/sec LEFT CCA PV: 71cm/sec LEFT ICA ED: 35cm/sec LEFT IC/CCPV: 1.2 LEFT VERTEBRAL: antegrade flow LEFT % STENOSIS: Less than 50% <50% ICA Stenosis: PSV < 125cm/s (EDV < 40cm/s; SVR < 2.0) 50-69% ICA Stenosis: PSV < 125-229cm/s (EDV 40-99cm/s; SVR 2.0-3.9) >70% ICA Stenosis: PSV > 230cm/s (EDV >100cm/s; SVR >4.0) Impression: No evidence of hemodynamically significant stenosis. Electronically signed by: Austen Younger MD (02/13/2018 9:06 AM) [id number]
--- NOTE | 2018-02-13 09:12 | HP ---
ADMIT DATE: 02/12/2018 CHIEF COMPLAINT: Weakness. HISTORY OF PRESENT ILLNESS: The patient is a 77-year-old male who was brought to the Emergency Room with the above complaint. He reports that on the morning of admission, he fell to his knees besides his bed and was unable to get up by himself. This was unusual for him as he is usually independently ambulatory. Initial evaluation in the Emergency Room showed the patient to have an elevated temperature of 100.1. A CT of the head without contrast showed possible dilation of the ventricles. The patient was very unsteady on his feet in the Emergency Department and was unable to ambulate at all. He was admitted for further care. PAST MEDICAL HISTORY: Diabetes mellitus type 2, diet controlled; allergic rhinitis; GERD; obstructive sleep apnea; prostate cancer; colon cancer; previous DVT; peripheral neuropathy. PAST SURGICAL HISTORY: Hernia repair, carpal tunnel release, cholecystectomy, hydrocele repair, right hip replacement, cataract surgery bilaterally, Lap-Band in 2010, gastric bypass, 08/31; partial colectomy; ventral hernia repair, 04/06. ALLERGIES: THE PATIENT IS ALLERGIC OR INTOLERANT TO STATINS AND DEMEROL. HOME MEDICATIONS: Aspirin 81 mg daily, several vitamin supplements, Nexium 20 mg daily, Flonase nasal spray daily, gabapentin 300 mg t.i.d. FAMILY HISTORY: Noncontributory. SOCIAL HISTORY: The patient is and lives at home with his . He has not smoked cigarettes for over 10 years. He does not drink alcohol to excess. REVIEW OF SYSTEMS: The patient has had one episode of possible fever and chills several nights ago. He denies cough or shortness of breath. He denies chest pain or palpitations. He denies sinus pain, but does have some chronic sinus drainage. He denies abdominal pain, nausea or vomiting. He denies unusual swelling in his legs. PHYSICAL EXAMINATION: GENERAL: The patient is alert and oriented x 3, resting comfortably in bed, in no acute distress. HEENT: PERRL, EOMI, sclerae clear. Oropharynx: Mucous membranes moist. NECK: Supple, without lymphadenopathy. CHEST: Clear to auscultation. CARDIOVASCULAR: Regular rhythm without murmur. ABDOMEN: Soft, nontender, normoactive bowel sounds are present. EXTREMITIES: Without edema. NEUROLOGIC: Grossly intact. Gait is not tested. ASSESSMENT AND PLAN: 1. Febrile illness with sepsis. The patient had a temperature elevated to 102.4 axillary last evening, but this was treated with Tylenol and has improved. Blood cultures are pending. Urine at admission was unremarkable and a chest x- ray was clear. The patient did have an elevated white count of 11.8 with a left shift. Suspect he has a viral illness. Blood cultures are pending. We will continue to monitor his condition. There is no indication for antibiotics at this time. 2. Weakness. Dr. Sandhu examined the patient and noticed he had a significantly apraxic gait, which is unusual for him. The MRI of the brain showed significant small vessel disease, but no acute findings. Physical and occupational therapy are ordered. Further evaluation per Dr. Sandhu. 3. Diabetes mellitus type 2. This is well controlled with diet only. 4. Allergic rhinitis. MRI of the brain showed some sinus congestion, but patient denies any pain. We will continue the Flonase daily. 5. Obstructive sleep apnea. Continue home CPAP. 6. History of prostate cancer. The patient has had radiation treatment for this and is currently on Lupron injections per Urology. ALTON MONTEZ MD DR: UMA/sarah JOB#: [id number] / [id number] GWEN
[2018-02-13 11:00] VITALS: BP 120/53
--- NOTE | 2018-02-13 11:29 | CARD ---
MR#: [id number] Date of Study: 02/13/2018 Ordering Physician: DENAE ALANIS, Referring Physician: ALTON MONTEZ, Tech: Neelam Devi APPROVED REPORT EXAM: Two-dimensional and M-mode echocardiogram with Doppler and color Doppler. Other Information Quality : FairHR: 63bpm Rhythm : NSR INDICATION Syncope 2D DIMENSIONS Left Atrium(2D)4.6 (1.6-4.0cm)IVSd1.3 (0.7-1.1cm) Aortic Root(2D)3.6 (2.0-3.7cm)LVDd4.6 (3.9-5.9cm) LVOT Diameter2.3 (1.8-2.4cm)PWd1.3 (0.7-1.1cm) LVDs3.8 (2.5-4.0cm)FS (%) 17.1 % SV34.9 ml Aortic Valve AoV Peak Winston.181.7cm/sAoV VTI42.7cm AO Peak GR.13.2mmHgLVOT Peak Winston.100.9cm/s AO Mean GR.8mmHgAVA (VMAX)2.33cm2 Mitral Valve MV E Mabasmtf62.7cm/sMV DECEL EBWO260in MV A Hrbcymuw311.0cm/sE/A Ratio0.9 Pulmonary Valve PV Peak Trnlwglj726.5cm/s Tricuspid Valve TR P. Nlpmswgq822uf/sRAP NTXDAEIT66ttRn TR Peak Gr.63rpHbBSEA66fgPf Pulmonary Vein PVa cxxjiuip032bits LEFT VENTRICLE The left ventricle is normal size. There is borderline to mild concentric left ventricular hypertroph y. The left ventricular systolic function is normal and the ejection fraction is within normal range. The Ejection Fraction is 50-55%. There is normal LV segmental wall motion. Transmitral Doppler flow pattern is Grade I-abnormal relaxation pattern. RIGHT VENTRICLE The right ventricle is borderline dilated. There is normal right ventricular wall thickness. The righ t ventricular systolic function is normal. ATRIA The left atrium size is normal. The right atrium size is normal. The interatrial septum is intact wit h no evidence for an atrial septal defect or patent foramen ovale as noted on 2-D or Doppler imaging. AORTIC VALVE The aortic valve is calcified but opens well. Doppler and Color Flow revealed trace aortic regurgitat ion. There is no significant aortic valvular stenosis. MITRAL VALVE The mitral valve is thickened but opens well. Mitral annular calcification is mild. There is no eboni l valve stenosis. Doppler and Color Flow revealed trace mitral valve regurgitation. TRICUSPID VALVE The tricuspid valve is normal in structure and function. Doppler and Color Flow revealed trace tricus pid regurgitation. PULMONIC VALVE The pulmonic valve is not well visualized. Doppler and Color Flow revealed no pulmonic valvular regur gitation. GREAT VESSELS The aortic root is normal in size. Normal pulmonary venous flow (Doppler). The IVC is dilated and col lapses >50% with inspiration. PERICARDIAL EFFUSION There is no evidence of significant pericardial effusion. Critical Notification Critical Value: No <Conclusion> The left ventricle is normal size. The left ventricular systolic function is normal and the ejection fraction is within normal range. The Ejection Fraction is 50-55%. There is borderline to mild concentric left ventricular hypertrophy. There is no significant aortic valvular stenosis. Doppler and Color Flow revealed trace aortic regurgitation. Doppler and Color Flow revealed trace mitral valve regurgitation. Doppler and Color Flow revealed trace tricuspid regurgitation. Signed by : Trent Paredes MD Electronically Approved : 02/13/2018 11:28:31
--- NOTE | 2018-02-13 11:32 | RAD ---
MRI of the cervical spine without contrast 02/13/2018 CLINICAL HISTORY: Neck pain with bilateral hand tingling. TECHNIQUE: Unenhanced T1-weighted, T2-weighted and inversion recovery sagittal and gradient echo and T2-weighted axial images of the cervical spine were obtained. FINDINGS: Minimal lateral curvature of the cervical spine is seen convex to the left. There is straightening of the normal cervical lordosis. Degenerative signal changes are seen involving all of the disks of the cervical spine. Loss of height of the C5-6 and C6-7 discs is noted. Degenerative signal changes are seen within the marrow surrounding these discs. The cervical spinal cord is normal morphology, position, and signal characteristics. Mild to moderate mucosal thickening is seen scattered throughout the visualized paranasal sinuses. At the C2-3 disc space there is a mild generalized disc bulge. This is eccentric to the left. Degenerative changes are seen involving the uncovertebral and facet joints bilaterally. These findings do not result in significant central spinal canal or neural foraminal stenosis. At the C3-4 disc space there is a mild generalized disc bulge. Degenerative changes are seen involving the uncovertebral and facet joints, left greater than right. These findings when combined do not result in significant central spinal canal stenosis. Mild left greater than right neural foraminal stenosis is seen. At the C4-5 disc space there is a minimal generalized disc bulge. Degenerative changes are seen involving the uncovertebral and facet joints, left greater than right. These findings when combined do not result in significant central spinal canal stenosis. Mild left neural foraminal stenosis is seen. The right neural foramen is patent. At the C5-6 disc space there is a mild to moderate generalized disc bulge. This is eccentric to the left. Degenerative changes are seen involving the uncovertebral and facet joints bilaterally. These findings when combine efface the anterior CSF without resulting in significant central spinal canal stenosis. Mild to moderate left greater than right neural foraminal stenosis is seen. At the C6-7 disc space there is a mild generalized disc bulge. Degenerative changes are seen involving the uncovertebral and facet joints bilaterally. These findings do not result in significant central spinal canal stenosis. Mild bilateral neural foraminal stenosis is seen. At the C7-T1 disc space there is a minimal generalized disc bulge. Degenerative changes are seen involving the facet joints bilaterally. These findings do not result in significant central spinal canal or neural foraminal stenosis. IMPRESSION: Degenerative changes are seen throughout the cervical spine. These findings do not result in significant central spinal canal stenosis. Mild left greater than right neural foraminal stenosis is seen at C3-4. Mild left neural foraminal stenosis is seen at C4-5. Mild to moderate left greater than right neural foraminal stenosis is seen at C5-6. Mild bilateral neural foraminal stenosis is seen at C6-7. Electronically signed by: Kevin Jaime MD (02/13/2018 11:28 AM) [facility]
--- NOTE | 2018-02-13 12:10 | PDOC ---
PROGRESS NOTES Assessment Problems Medical Problems: (1) Dehydration Status: Acute (2) Generalized weakness Status: Acute Note elevated CPK, rhabdomyolysis may be part of the problem No normal pressure hydrocephalus, ex-vacuo dilatation of the ventricles. Severe neuropathy, diabetes, chemotherapy, rule out other causes. 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 Slightly low vitamin D level Cervical spondylosis, no radiculopathy or myelopathy Recommendations: I discussed with the patient and his . Plan Await echocardiogram, other laboratory studies Rehabilitation modalities Repeat CPK level tomorrow Vitamin D replacement per primary service Subjective Feels better, sitting up eating breakfast Objective Vital Signs Date Time Temp Pulse Resp B/P (MAP) Pulse Ox O2 Delivery O2 Flow Rate FiO2 02/13/18 08:00 Room Air 02/13/18 07:00 97.9 57 20 113/53 (73) 95 97.9 Intake and Output 02/13/18 07:00 Intake Total 2150 ml Output Total 350 ml Balance 1800 ml Intake Oral 150 ml IV Total 2000 ml Output Urine Total 350 ml # Voids 3 PHYSICAL EXAM Alert. Oriented to time, place and person. PERRL. EOMI. CN: no focal findings. Muscle tone: normal. Muscle strength: 5/5 DTR: 0-1+ Plantar reflex: flexor Gait: not examined in bed. Sensory exam: no abnormal findings. No cerebellar signs elicited. Review of Relevant I have reviewed the following items davy (where applicable) has been applied. Labs Laboratory Tests Test 02/12/18 10:47 02/12/18 13:43 02/13/18 07:26 White Blood Count 11.8 x10^3/uL (4.0-11.0) 9.5 x10^3/uL (4.0-11.0) Red Blood Count 4.24 x10^6/uL (4.30-5.70) 3.66 x10^6/uL (4.30-5.70) Hemoglobin 13.9 g/dL (13.0-17.5) 12.0 g/dL (13.0-17.5) Hematocrit 40.3 % (39.0-53.0) 35.0 % (39.0-53.0) Mean Corpuscular Volume 95 fL (79-100) 96 fL (79-100) Mean Corpuscular Hemoglobin 33 pg (25-35) 33 pg (25-35) Mean Corpuscular Hemoglobin Concent 34 g/dL (31-37) 34 g/dL (31-37) Red Cell Distribution Width 13.6 % (11.5-14.5) 13.7 % (11.5-14.5) Platelet Count 176 x10^3/uL (140-400) 155 x10^3/uL (140-400) Neutrophils (%) (Auto) 85 % (31-73) 76 % (31-73) Lymphocytes (%) (Auto) 3 % (24-48) 10 % (24-48) Monocytes (%) (Auto) 12 % (0-9) 13 % (0-9) Eosinophils (%) (Auto) 0 % (0-3) 1 % (0-3) Basophils (%) (Auto) 0 % (0-3) 0 % (0-3) Neutrophils # (Auto) 10.0 x10^3uL (1.8-7.7) 7.2 x10^3uL (1.8-7.7) Lymphocytes # (Auto) 0.3 x10^3/uL (1.0-4.8) 1.0 x10^3/uL (1.0-4.8) Monocytes # (Auto) 1.4 x10^3/uL (0.0-1.1) 1.2 x10^3/uL (0.0-1.1) Eosinophils # (Auto) 0.0 x10^3/uL (0.0-0.7) 0.1 x10^3/uL (0.0-0.7) Basophils # (Auto) 0.0 x10^3/uL (0.0-0.2) 0.0 x10^3/uL (0.0-0.2) Segmented Neutrophils % 76 % (35-66) Band Neutrophils % 15 % (0-9) Lymphocytes % 2 % (24-48) Monocytes % 7 % (0-10) Platelet Estimate Adequate (ADEQUATE) Anisocytosis Slight Sodium Level 145 mmol/L (136-145) 145 mmol/L (136-145) Potassium Level 3.7 mmol/L (3.5-5.1) 3.7 mmol/L (3.5-5.1) Chloride Level 107 mmol/L (98-107) 109 mmol/L (98-107) Carbon Dioxide Level 27 mmol/L (21-32) 29 mmol/L (21-32) Anion Gap 11 (6-14) 7 (6-14) Blood Urea Nitrogen 13 mg/dL (8-26) 12 mg/dL (8-26) Creatinine 0.9 mg/dL (0.7-1.3) 0.7 mg/dL (0.7-1.3) Estimated GFR (Cockcroft-Gault) 81.6 109.1 Glucose Level 123 mg/dL (70-99) 119 mg/dL (70-99) Lactic Acid Level 2.5 mmol/L (0.4-2.0) Calcium Level 9.2 mg/dL (8.5-10.1) 8.3 mg/dL (8.5-10.1) Phosphorus Level 2.7 mg/dL (2.6-4.7) Magnesium Level 1.8 mg/dL (1.8-2.4) Troponin I Quantitative < 0.017 ng/mL (0.000-0.055) UT-Bie-Z-Type Natriuretic Peptide 350 pg/mL (0-449) Urine Collection Type Unknown Urine Color Yellow Urine Clarity Clear Urine pH 6.5 Urine Specific [place] 1.020 Urine Protein Negative mg/dL (NEG-TRACE) Urine Glucose (UA) Negative mg/dL (NEG) Urine Ketones (Stick) Negative mg/dL (NEG) Urine Blood Negative (NEG) Urine Nitrite Negative (NEG) Urine Bilirubin Negative (NEG) Urine Urobilinogen Dipstick 1.0 mg/dL (0.2 mg/dL) Urine Leukocyte Esterase Negative (NEG) Urine RBC 0 /HPF (0-2) Urine WBC 0 /HPF (0-4) Urine Bacteria 0 /HPF (0-FEW) Urine Mucus Slight /LPF Erythrocyte Sedimentation Rate 2 (0-15) Creatine Kinase 2313 U/L (39-308) Vitamin B12 Level 350 pg/mL (247-911) 25-Hydroxy Vitamin D Total 26.0 ng/mL (30-100) Thyroid Stimulating Hormone (TSH) 1.562 uIU/mL (0.358-3.74) Laboratory Tests Test 02/12/18 13:43 02/13/18 07:26 Urine Collection Type Unknown Urine Color Yellow Urine Clarity Clear Urine pH 6.5 Urine Specific [place] 1.020 Urine Protein Negative mg/dL (NEG-TRACE) Urine Glucose (UA) Negative mg/dL (NEG) Urine Ketones (Stick) Negative mg/dL (NEG) Urine Blood Negative (NEG) Urine Nitrite Negative (NEG) Urine Bilirubin Negative (NEG) Urine Urobilinogen Dipstick 1.0 mg/dL (0.2 mg/dL) Urine Leukocyte Esterase Negative (NEG) Urine RBC 0 /HPF (0-2) Urine WBC 0 /HPF (0-4) Urine Bacteria 0 /HPF (0-FEW) Urine Mucus Slight /LPF White Blood Count 9.5 x10^3/uL (4.0-11.0) Red Blood Count 3.66 x10^6/uL (4.30-5.70) Hemoglobin 12.0 g/dL (13.0-17.5) Hematocrit 35.0 % (39.0-53.0) Mean Corpuscular Volume 96 fL (79-100) Mean Corpuscular Hemoglobin 33 pg (25-35) Mean Corpuscular Hemoglobin Concent 34 g/dL (31-37) Red Cell Distribution Width 13.7 % (11.5-14.5) Platelet Count 155 x10^3/uL (140-400) Neutrophils (%) (Auto) 76 % (31-73) Lymphocytes (%) (Auto) 10 % (24-48) Monocytes (%) (Auto) 13 % (0-9) Eosinophils (%) (Auto) 1 % (0-3) Basophils (%) (Auto) 0 % (0-3) Neutrophils # (Auto) 7.2 x10^3uL (1.8-7.7) Lymphocytes # (Auto) 1.0 x10^3/uL (1.0-4.8) Monocytes # (Auto) 1.2 x10^3/uL (0.0-1.1) Eosinophils # (Auto) 0.1 x10^3/uL (0.0-0.7) Basophils # (Auto) 0.0 x10^3/uL (0.0-0.2) Erythrocyte Sedimentation Rate 2 (0-15) Sodium Level 145 mmol/L (136-145) Potassium Level 3.7 mmol/L (3.5-5.1) Chloride Level 109 mmol/L (98-107) Carbon Dioxide Level 29 mmol/L (21-32) Anion Gap 7 (6-14) Blood Urea Nitrogen 12 mg/dL (8-26) Creatinine 0.7 mg/dL (0.7-1.3) Estimated GFR (Cockcroft-Gault) 109.1 Glucose Level 119 mg/dL (70-99) Calcium Level 8.3 mg/dL (8.5-10.1) Creatine Kinase 2313 U/L (39-308) Vitamin B12 Level 350 pg/mL (247-911) 25-Hydroxy Vitamin D Total 26.0 ng/mL (30-100) Thyroid Stimulating Hormone (TSH) 1.562 uIU/mL (0.358-3.74) Microbiology 02/12/18 Blood Culture - Preliminary, Resulted NO GROWTH AFTER 1 DAY Medications Current Medications Calcium Gluconate (Calcium Gluconate) 1,000 mg 1X ONCE IVP Last administered on 02/12/18at 10:52; Start 02/12/18 at 11:00; Stop 02/12/18 at 11:01; Status DC Sodium Chloride 1,000 ml @ 1,000 mls/hr 1X ONCE IV Last administered on at 11:18; Start 02/12/18 at 11:15; Stop 02/12/18 at 12:14; Status DC Sodium Chloride 500 ml @ 500 mls/hr 1X ONCE IV Last administered on at 12:59; Start 02/12/18 at 12:30; Stop 02/12/18 at 13:29; Status DC Sodium Chloride 500 ml @ 500 mls/hr 1X ONCE IV Last administered on at 13:45; Start 02/12/18 at 13:45; Stop 02/12/18 at 14:44; Status DC Ondansetron HCl (Zofran) 4 mg PRN Q8HRS PRN IV NAUSEA/VOMITING; Start 02/12/18 at 15:15; Stop 02/13/18 at 15:14 Sodium Chloride 1,000 ml @ 75 mls/hr [id number] IV Last administered on at 15:31; Start 02/12/18 at 15:30; Stop 02/13/18 at 15:29 Acetaminophen (Tylenol) 1,000 mg PRN Q6HRS PRN PO FEVER Last administered on at 21:42; Start 02/12/18 at 19:45 Info (FLU VACCINE SCREEN per RX) 0.5 each 1X ONCE MC ; Start 02/12/18 at 20:15 ; Stop 02/12/18 at 20:16; Status UNV Influenza Virus Vaccine (Afluria Trivalent [id number] Syringe) 0.5 ml ONCE ONCE VAX IM ; Start 02/12/18 at 21:00; Stop 02/12/18 at 21:01; Status DC Gabapentin (Neurontin) 300 mg TID PO Last administered on 02/13/18at 09:06; Start 02/12/18 at 21:00 Aspirin (Children'S Aspirin) 81 mg DAILY PO Last administered on 02/13/18at 09: 06; Start 02/13/18 at 09:00 Cyanocobalamin (Vitamin B-12) 1,000 mcg DAILY PO Last administered on at 09:06; Start 02/13/18 at 09:00 Fluticasone Propionate (Flonase) 2 spray DAILY NS Last administered on at 09:06; Start 02/13/18 at 09:00 Pantoprazole Sodium (Protonix) 40 mg DAILYAC PO Last administered on 02/13/18at 09:06; Start 02/13/18 at 08:30 Multivitamins (Thera M Plus) 1 tab DAILY PO Last administered on 02/13/18at 09: 06; Start 02/13/18 at 09:00 Naproxen (Naprosyn) 250 mg PRN BID PRN PO MILD PAIN Last administered on at 09:06; Start 02/13/18 at 08:45 Active Scripts Active Fluticasone Propionate Nasal [employer] (Fluticasone Propionate) 16 Gm [employer].susp 2 [employer] NS DAILY Reported Multivitamins (Multivitamin) 1 Each Tablet 1 Tab PO DAILY Diphenhydramine Hcl 25 Mg Tablet 25 Mg PO PRN B-12 (Cyanocobalamin (Vitamin B-12)) 1,000 Mcg Tablet 1,000 Mcg PO B-6 (Pyridoxine HCl (Vitamin B6)) 200 Mg Tablet.er 200 Mg PO Aleve (Naproxen Sodium) 220 Mg Capsule 220 Mg PO BID PRN MDD 3 tablets 14 Days Gabapentin 300 Mg Capsule 300 Mg PO TID Nexium Capsule (Esomeprazole Magnesium) 20 Mg Capsule.dr 20 Mg PO DAILYAC Aspirin 81 Mg Tab.chew 1 Tab PO DAILY Vitamin D (Cholecalciferol (Vitamin D3)) 1,000 Unit Capsule 1 Cap PO DAILY Vitals/I & O Vital Sign - Last 24 Hours 02/12/18 02/12/18 02/12/18 02/12/18 12:21 13:15 14:43 17:05 Temp 100.0 100.0 Pulse 87 86 89 88 Resp 16 18 18 20 B/P (MAP) 124/40 (68) Pulse Ox 95 96 96 94 O2 Delivery Room Air 02/12/18 02/12/18 02/12/18 02/12/18 18:50 19:44 20:00 23:00 Temp 102.4 99.1 102.4 99.1 Pulse 91 60 Resp 24 20 B/P (MAP) 133/55 (81) 112/51 (71) Pulse Ox 93 95 O2 Delivery Room Air Room Air Room Air Room Air 02/13/18 02/13/18 02/13/18 03:00 07:00 08:00 Temp 98.0 97.9 98.0 97.9 Pulse 55 57 Resp 20 20 B/P (MAP) 123/81 (95) 113/53 (73) Pulse Ox 98 95 O2 Delivery BiPAP/CPAP Room Air Room Air Intake and Output 02/12/18 02/12/18 02/13/18 15:00 23:00 07:00 Intake Total 2000 ml 150 ml Output Total 350 ml Balance 2000 ml 150 ml -350 ml Images MRI cervical: Minimal lateral curvature of the cervical spine is seen convex to the left. There is straightening of the normal cervical lordosis. Degenerative signal changes are seen involving all of the disks of the cervical spine. Loss of height of the C5-6 and C6-7 discs is noted. Degenerative signal changes are seen within the marrow surrounding these discs. The cervical spinal cord is normal morphology, position, and signal characteristics. Mild to moderate mucosal thickening is seen scattered throughout the visualized paranasal sinuses. At the C2-3 disc space there is a mild generalized disc bulge. This is eccentric to the left. Degenerative changes are seen involving the uncovertebral and facet joints bilaterally. These findings do not result in significant central spinal canal or neural foraminal stenosis. At the C3-4 disc space there is a mild generalized disc bulge. Degenerative changes are seen involving the uncovertebral and facet joints, left greater than right. These findings when combined do not result in significant central spinal canal stenosis. Mild left greater than right neural foraminal stenosis is seen. At the C4-5 disc space there is a minimal generalized disc bulge. Degenerative changes are seen involving the uncovertebral and facet joints, left greater than right. These findings when combined do not result in significant central spinal canal stenosis. Mild left neural foraminal stenosis is seen. The right neural foramen is patent. At the C5-6 disc space there is a mild to moderate generalized disc bulge. This is eccentric to the left. Degenerative changes are seen involving the uncovertebral and facet joints bilaterally. These findings when combine efface the anterior CSF without resulting in significant central spinal canal stenosis. Mild to moderate left greater than right neural foraminal stenosis is seen. At the C6-7 disc space there is a mild generalized disc bulge. Degenerative changes are seen involving the uncovertebral and facet joints bilaterally. These findings do not result in significant central spinal canal stenosis. Mild bilateral neural foraminal stenosis is seen. At the C7-T1 disc space there is a minimal generalized disc bulge. Degenerative changes are seen involving the facet joints bilaterally. These findings do not result in significant central spinal canal or neural foraminal stenosis. IMPRESSION: Degenerative changes are seen throughout the cervical spine. These findings do not result in significant central spinal canal stenosis. Mild left greater than right neural foraminal stenosis is seen at C3-4. Mild left neural foraminal stenosis is seen at C4-5. Mild to moderate left greater than right neural foraminal stenosis is seen at C5-6. Mild bilateral neural foraminal stenosis is seen at C6-7. Carotid Doppler studies RIGHT ICA PV: 96cm/sec RIGHT CCA PV: 79cm/sec RIGHT ICA ED: 28cm/sec RIGHT IC/CCPV: 1.2 RIGHT VERTEBRAL: antegrade flow RIGHT % STENOSIS: Less than 50% LEFT ICA PV: 88cm/sec LEFT CCA PV: 71cm/sec LEFT ICA ED: 35cm/sec LEFT IC/CCPV: 1.2 LEFT VERTEBRAL: antegrade flow LEFT % STENOSIS: Less than 50% <50% ICA Stenosis: PSV < 125cm/s (EDV < 40cm/s; SVR < 2.0) 50-69% ICA Stenosis: PSV < 125-229cm/s (EDV 40-99cm/s; SVR 2.0-3.9) >70% ICA Stenosis: PSV > 230cm/s (EDV >100cm/s; SVR >4.0) Impression: No evidence of hemodynamically significant stenosis. DENAE ALANIS MD Feb 13, 2018 12:10
--- NOTE | 2018-02-13 13:03 | PDOC2 ---
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 Reports that he he has been having sensation of hot flashes this weekend. No recorded fever but upon admission he has been noted with fever. Denies any cough, burning with urination. Yesterday morning from standing up he got down to his knees and started having confused conversation and feeling weak. There was no signs of seizures but pt felt weak and could not stand up. No slurred speech, dizziness, palpitations, chest pain, or SOA. Denies any frequent cough , recent exposure to someone that has infection. No symptoms of unilateral weakness, facial droop, visual or auditory disturbances. Denies any past CAD, CVA, or arrhythmias. PAST MEDICAL HISTORY Cardiovascular: Hyperlipidemia Pulmonary: Other CENTRAL NERVOUS SYSTEM: Periperal neuropathy GI: GERD (esophageal stricture) Heme/Onc: Cancer (colon), Other (DVT) Hepatobiliary: Cholelithiasis Musculoskeletal: Osteoarthritis, Other (significant lumbar stenosis) Rheumatologic: No pertinent hx Infectious disease: No pertinent hx ENT: Allergic Rhinitis Renal/: Prostate Ca. (with biopsy and chemo), Other (ED) Endocrine: Diabetes (2) Dermatology: No pertinent hx PAST SURGICAL HISTORY Past Surgical History: Cholecystectomy, Cataract Removal, Total hip replacement (right), Colectomy, Other (ventral hernia repair; bilateral wrist CTS repair; hydrocele repair; righ epidydimectomy; esophageal dilatation; lap band; IVC filter for 3 months only then removed. ;) FAMILY HISTORY Family History: Stroke (father) SOCIAL HISTORY Smoke: Quit ALCOHOL: occassional Drugs: None Lives: with Family CURRENT MEDICATIONS CURRENT MEDICATIONS Current Medications Medications (Trade) Dose Ordered Sig/Jen Route PRN Reason Start Time Stop Time Status Last Admin Dose Admin Sodium Chloride 500 ml @ 500 mls/hr 1X ONCE IV 02/12/18 12:30 02/12/18 13:29 DC 02/12/18 12:59 Sodium Chloride 500 ml @ 500 mls/hr 1X ONCE IV 02/12/18 13:45 02/12/18 14:44 DC 02/12/18 13:45 Sodium Chloride 1,000 ml @ 75 mls/hr [id number] IV 02/12/18 15:30 02/13/18 15:29 02/12/18 15:31 Acetaminophen (Tylenol) 1,000 mg PRN Q6HRS PRN PO FEVER 02/12/18 19:45 02/12/18 21:42 Gabapentin (Neurontin) 300 mg TID PO 02/12/18 21:00 02/13/18 09:06 Aspirin (Children'S Aspirin) 81 mg DAILY PO 02/13/18 09:00 02/13/18 09:06 Cyanocobalamin (Vitamin B-12) 1,000 mcg DAILY PO 02/13/18 09:00 02/13/18 09:06 Fluticasone Propionate (Flonase) 2 spray DAILY NS 02/13/18 09:00 02/13/18 09:06 Pantoprazole Sodium (Protonix) 40 mg DAILYAC PO 02/13/18 08:30 02/13/18 09:06 Multivitamins (Thera M Plus) 1 tab DAILY PO 02/13/18 09:00 02/13/18 09:06 Naproxen (Naprosyn) 250 mg PRN BID PRN PO MILD PAIN 02/13/18 08:45 02/13/18 09:06 ALLERGIES ALLERGIES: Coded Allergies: Szwanaf-Yqh-Qsg Reductase Inhibitor (Verified Allergy, Intermediate, body aches, 04/02/17) meperidine (Verified Allergy, Intermediate, Hallucinations, 04/02/17) ROS Review of System 14 point ROS evaluated with pertinent positives noted per HPI PHYSICAL EXAM General: Alert, Oriented X3, Cooperative, No acute distress HEENT: Atraumatic, Mucous membr. moist/pink Lungs: Clear to auscultation, Normal air movement Heart: Regular rate (RRR not on tele), Normal S1, Normal S2, No murmurs Abdomen: Soft, No tenderness Extremities: No cyanosis, Other (1+ bilateral LE pitting edema) Skin: No breakdown, No significant lesion Neuro: Normal speech, Sensation intact Psych/Mental Status: Mental status NL, Mood NL MUSCULOSKELETAL: Osteoarthritic changes both hands VITALS VITALS Vital Signs Date Time Temp Pulse Resp B/P (MAP) Pulse Ox O2 Delivery O2 Flow Rate FiO2 02/13/18 08:00 Room Air 02/13/18 07:00 97.9 57 20 113/53 (26) 67 97.9 LABS Lab: Laboratory Tests Test 02/12/18 13:43 02/13/18 07:26 Urine Collection Type Unknown Urine Color Yellow Urine Clarity Clear Urine pH 6.5 Urine Specific [place] 1.020 Urine Protein Negative mg/dL (NEG-TRACE) Urine Glucose (UA) Negative mg/dL (NEG) Urine Ketones (Stick) Negative mg/dL (NEG) Urine Blood Negative (NEG) Urine Nitrite Negative (NEG) Urine Bilirubin Negative (NEG) Urine Urobilinogen Dipstick 1.0 mg/dL (0.2 mg/dL) Urine Leukocyte Esterase Negative (NEG) Urine RBC 0 /HPF (0-2) Urine WBC 0 /HPF (0-4) Urine Bacteria 0 /HPF (0-FEW) Urine Mucus Slight /LPF White Blood Count 9.5 x10^3/uL (4.0-11.0) Red Blood Count 3.66 x10^6/uL (4.30-5.70) Hemoglobin 12.0 g/dL (13.0-17.5) Hematocrit 35.0 % (39.0-53.0) Mean Corpuscular Volume 96 fL (79-100) Mean Corpuscular Hemoglobin 33 pg (25-35) Mean Corpuscular Hemoglobin Concent 34 g/dL (31-37) Red Cell Distribution Width 13.7 % (11.5-14.5) Platelet Count 155 x10^3/uL (140-400) Neutrophils (%) (Auto) 76 % (31-73) Lymphocytes (%) (Auto) 10 % (24-48) Monocytes (%) (Auto) 13 % (0-9) Eosinophils (%) (Auto) 1 % (0-3) Basophils (%) (Auto) 0 % (0-3) Neutrophils # (Auto) 7.2 x10^3uL (1.8-7.7) Lymphocytes # (Auto) 1.0 x10^3/uL (1.0-4.8) Monocytes # (Auto) 1.2 x10^3/uL (0.0-1.1) Eosinophils # (Auto) 0.1 x10^3/uL (0.0-0.7) Basophils # (Auto) 0.0 x10^3/uL (0.0-0.2) Erythrocyte Sedimentation Rate 2 (0-15) Sodium Level 145 mmol/L (136-145) Potassium Level 3.7 mmol/L (3.5-5.1) Chloride Level 109 mmol/L (98-107) Carbon Dioxide Level 29 mmol/L (21-32) Anion Gap 7 (6-14) Blood Urea Nitrogen 12 mg/dL (8-26) Creatinine 0.7 mg/dL (0.7-1.3) Estimated GFR (Cockcroft-Gault) 109.1 Glucose Level 119 mg/dL (70-99) Calcium Level 8.3 mg/dL (8.5-10.1) Creatine Kinase 2313 U/L (39-308) Vitamin B12 Level 350 pg/mL (247-911) 25-Hydroxy Vitamin D Total 26.0 ng/mL (30-100) Thyroid Stimulating Hormone (TSH) 1.562 uIU/mL (0.358-3.74) ECHOCARDIOGRAM ECHOCARDIOGRAM <Conclusion> The left ventricle is normal size. The left ventricular systolic function is normal and the ejection fraction is within normal range. The Ejection Fraction is 50-55%. There is borderline to mild concentric left ventricular hypertrophy. There is no significant aortic valvular stenosis. Doppler and Color Flow revealed trace aortic regurgitation. Doppler and Color Flow revealed trace mitral valve regurgitation. Doppler and Color Flow revealed trace tricuspid regurgitation. DATE: 02/13/18 1128 ASSESSMENT/PLAN ASSESSMENT/PLAN 1. Fever/weakness: Tmax 102.4, unknown origin, underlying chronic sinusitis ? 2. Metabolic encephalopathy: neurology following 3. Abnormal EKG: RBBB, likely his baseline. no bradycardia. No cardiac symptoms. Current EF and WM nml 4. Rhabdomyolysis: likely from fever 5. Mild Carotid artery disease 6. DM2/HLP: statin intolerance 7. Cervical stenosis 8. LAXMI/morbid obesity: BMI 45. Lap band and removal. 9. Hx of prostate CA: treated with last radiation 07/2017 and I believe treated also with lupron. Recommendations 1. Given his significant cardiac risk factors, stress test will be considered as an outpt for further risk stratification 2. Continue with ASA. Push fluids, IVF and antibiotics per PCP 3. Check lipids, potential candidate for PCSK9 inhibitor. 4. Place on tele monitor KITTY MONTERROSO MD 02/13/181: CARDIAC CONSULT ASSESSMENT/PLAN ASSESSMENT/PLAN Pt. seen and examined. Agree with above BODY ART TECHNICIAN note. 77 y.o male presenting with fatigue. EKG unremarkable. Normal echo. No further stress testing needed at this time. f/u with PCP. WILLY ESCUDERO APRN Feb 13, 2018 13:03 KITTY MONTERROSO MD Feb 13, 2018 21:01
[2018-02-13 13:21] LABS: CHOLESTEROL/HDL RATIO 2.8
[2018-02-13 15:00] VITALS: BP 119/46
[2018-02-13 20:14] VITALS: BP 162/55
[2018-02-13 22:57] VITALS: BP 121/58
[2018-02-14 02:32] VITALS: BP 108/55
[2018-02-14 04:20] LABS: HEMOGLOBIN A1C 5.5 % (4.8-5.6)
[2018-02-14 07:00] VITALS: BP 116/41
[2018-02-14] MEDS: PANTOPRAZOLE 40 MG TABLET.DR. PO SCH (07:30)
--- NOTE | 2018-02-14 08:38 | PDOC ---
PROGRESS NOTES Subjective Subjective Patient without complaint, feels much better. Objective Objective Vital Signs Date Time Temp Pulse Resp B/P (MAP) Pulse Ox O2 Delivery O2 Flow Rate FiO2 02/14/18 07:00 97.7 49 18 116/41 (66) 96 Room Air 97.7 Intake and Output 02/14/18 07:00 Intake Total 880 ml Output Total 350 ml Balance 530 ml Intake Oral 880 ml Output Urine Total 350 ml # Voids 3 Physical Exam Abdomen: Normal bowel sounds, Soft, No tenderness Heart: Regular rate Extremities: No edema General: Alert, Oriented X3, No acute distress Lungs: Clear to auscultation Assessment Assessment Problems Medical Problems: (1) Dehydration Status: Acute (2) Generalized weakness Status: Acute Plan Plan of Care 1. Sepsis with febrile illness - no fever in over 24 hours. Blood cultures negative to date. WBC's returned to normal. Home today. 2. rhabdomyolysis - improved on lab today but CK still significantly elevated. Thought to be from fever as patient did not have prolonged immobility prior to admission. Advised increased po fluids for the next several days. Will recheck as outpatient. 3. generalized weakness - appears to have been due to illness as no other cause apparent at this time and he is back to his baseline mobility. 4. Vitamin D deficiency - mild. Home medication list has Vitamin D 1000 units on it but patient not sure he has been taking this, advised to resume daily. 5. DM2 - well controlled with diet only. 6. R BBB on EKG - Echo WNL, no further evaluation needed at this time per Cardiology. 7. prostate cancer - stable, continue outpatient tx per Urology. 8. peripheral neuropathy - stable, continue Gabapentin. Comment Review of Relevant I have reviewed the following items davy (where applicable) has been applied. Labs Laboratory Tests Test 02/12/18 10:47 02/12/18 13:43 02/13/18 07:26 02/14/18 05:20 White Blood Count 11.8 x10^3/uL (4.0-11.0) 9.5 x10^3/uL (4.0-11.0) Red Blood Count 4.24 x10^6/uL (4.30-5.70) 3.66 x10^6/uL (4.30-5.70) Hemoglobin 13.9 g/dL (13.0-17.5) 12.0 g/dL (13.0-17.5) Hematocrit 40.3 % (39.0-53.0) 35.0 % (39.0-53.0) Mean Corpuscular Volume 95 fL (79-100) 96 fL (79-100) Mean Corpuscular Hemoglobin 33 pg (25-35) 33 pg (25-35) Mean Corpuscular Hemoglobin Concent 34 g/dL (31-37) 34 g/dL (31-37) Red Cell Distribution Width 13.6 % (11.5-14.5) 13.7 % (11.5-14.5) Platelet Count 176 x10^3/uL (140-400) 155 x10^3/uL (140-400) Neutrophils (%) (Auto) 85 % (31-73) 76 % (31-73) Lymphocytes (%) (Auto) 3 % (24-48) 10 % (24-48) Monocytes (%) (Auto) 12 % (0-9) 13 % (0-9) Eosinophils (%) (Auto) 0 % (0-3) 1 % (0-3) Basophils (%) (Auto) 0 % (0-3) 0 % (0-3) Neutrophils # (Auto) 10.0 x10^3uL (1.8-7.7) 7.2 x10^3uL (1.8-7.7) Lymphocytes # (Auto) 0.3 x10^3/uL (1.0-4.8) 1.0 x10^3/uL (1.0-4.8) Monocytes # (Auto) 1.4 x10^3/uL (0.0-1.1) 1.2 x10^3/uL (0.0-1.1) Eosinophils # (Auto) 0.0 x10^3/uL (0.0-0.7) 0.1 x10^3/uL (0.0-0.7) Basophils # (Auto) 0.0 x10^3/uL (0.0-0.2) 0.0 x10^3/uL (0.0-0.2) Segmented Neutrophils % 76 % (35-66) Band Neutrophils % 15 % (0-9) Lymphocytes % 2 % (24-48) Monocytes % 7 % (0-10) Platelet Estimate Adequate (ADEQUATE) Anisocytosis Slight Sodium Level 145 mmol/L (136-145) 145 mmol/L (136-145) Potassium Level 3.7 mmol/L (3.5-5.1) 3.7 mmol/L (3.5-5.1) Chloride Level 107 mmol/L (98-107) 109 mmol/L (98-107) Carbon Dioxide Level 27 mmol/L (21-32) 29 mmol/L (21-32) Anion Gap 11 (6-14) 7 (6-14) Blood Urea Nitrogen 13 mg/dL (8-26) 12 mg/dL (8-26) Creatinine 0.9 mg/dL (0.7-1.3) 0.7 mg/dL (0.7-1.3) Estimated GFR (Cockcroft-Gault) 81.6 109.1 Glucose Level 123 mg/dL (70-99) 119 mg/dL (70-99) Lactic Acid Level 2.5 mmol/L (0.4-2.0) Calcium Level 9.2 mg/dL (8.5-10.1) 8.3 mg/dL (8.5-10.1) Phosphorus Level 2.7 mg/dL (2.6-4.7) Magnesium Level 1.8 mg/dL (1.8-2.4) Troponin I Quantitative < 0.017 ng/mL (0.000-0.055) GY-Bes-C-Type Natriuretic Peptide 350 pg/mL (0-449) Urine Collection Type Unknown Urine Color Yellow Urine Clarity Clear Urine pH 6.5 Urine Specific [place] 1.020 Urine Protein Negative mg/dL (NEG-TRACE) Urine Glucose (UA) Negative mg/dL (NEG) Urine Ketones (Stick) Negative mg/dL (NEG) Urine Blood Negative (NEG) Urine Nitrite Negative (NEG) Urine Bilirubin Negative (NEG) Urine Urobilinogen Dipstick 1.0 mg/dL (0.2 mg/dL) Urine Leukocyte Esterase Negative (NEG) Urine RBC 0 /HPF (0-2) Urine WBC 0 /HPF (0-4) Urine Bacteria 0 /HPF (0-FEW) Urine Mucus Slight /LPF Erythrocyte Sedimentation Rate 2 (0-15) Hemoglobin A1c 5.5 % (4.8-5.6) Creatine Kinase 2313 U/L (39-308) 1417 U/L (39-308) Triglycerides Level 47 mg/dL (0-150) Cholesterol Level 133 mg/dL (0-200) LDL Cholesterol, Calculated 76 mg/dL (0-100) VLDL Cholesterol, Calculated 9 mg/dL (0-40) Non-HDL Cholesterol Calculated 85 mg/dL (0-129) HDL Cholesterol 48 mg/dL (40-60) Cholesterol/HDL Ratio 2.8 Vitamin B12 Level 350 pg/mL (247-911) 25-Hydroxy Vitamin D Total 26.0 ng/mL (30-100) Thyroid Stimulating Hormone (TSH) 1.562 uIU/mL (0.358-3.74) Laboratory Tests Test 02/14/18 05:20 Creatine Kinase 1417 U/L (39-308) Microbiology 02/12/18 Blood Culture - Preliminary, Resulted NO GROWTH AFTER 1 DAY Medications Current Medications Calcium Gluconate (Calcium Gluconate) 1,000 mg 1X ONCE IVP Last administered on 02/12/18at 10:52; Start 02/12/18 at 11:00; Stop 02/12/18 at 11:01; Status DC Sodium Chloride 1,000 ml @ 1,000 mls/hr 1X ONCE IV Last administered on at 11:18; Start 02/12/18 at 11:15; Stop 02/12/18 at 12:14; Status DC Sodium Chloride 500 ml @ 500 mls/hr 1X ONCE IV Last administered on at 12:59; Start 02/12/18 at 12:30; Stop 02/12/18 at 13:29; Status DC Sodium Chloride 500 ml @ 500 mls/hr 1X ONCE IV Last administered on at 13:45; Start 02/12/18 at 13:45; Stop 02/12/18 at 14:44; Status DC Ondansetron HCl (Zofran) 4 mg PRN Q8HRS PRN IV NAUSEA/VOMITING; Start 02/12/18 at 15:15; Stop 02/13/18 at 15:14; Status DC Sodium Chloride 1,000 ml @ 75 mls/hr [id number] IV Last administered on at 15:31; Start 02/12/18 at 15:30; Stop 02/13/18 at 15:29; Status DC Acetaminophen (Tylenol) 1,000 mg PRN Q6HRS PRN PO FEVER Last administered on at 21:42; Start 02/12/18 at 19:45 Info (FLU VACCINE SCREEN per RX) 0.5 each 1X ONCE MC ; Start 02/12/18 at 20:15 ; Stop 02/12/18 at 20:16; Status UNV Influenza Virus Vaccine (Afluria Trivalent [id number] Syringe) 0.5 ml ONCE ONCE VAX IM Last administered on 02/13/18at 20:24; Start 02/12/18 at 21:00; Stop at 21:01; Status DC Gabapentin (Neurontin) 300 mg TID PO Last administered on 02/13/18at 20:21; Start 02/12/18 at 21:00 Aspirin (Children'S Aspirin) 81 mg DAILY PO Last administered on 02/13/18at 09: 06; Start 02/13/18 at 09:00 Cyanocobalamin (Vitamin B-12) 1,000 mcg DAILY PO Last administered on at 09:06; Start 02/13/18 at 09:00 Fluticasone Propionate (Flonase) 2 spray DAILY NS Last administered on at 09:06; Start 02/13/18 at 09:00 Pantoprazole Sodium (Protonix) 40 mg DAILYAC PO Last administered on 02/13/18at 09:06; Start 02/13/18 at 08:30 Multivitamins (Thera M Plus) 1 tab DAILY PO Last administered on 02/13/18at 09: 06; Start 02/13/18 at 09:00 Naproxen (Naprosyn) 250 mg PRN BID PRN PO MILD PAIN Last administered on at 09:06; Start 02/13/18 at 08:45 Active Scripts Active Fluticasone Propionate Nasal [place] (Fluticasone Propionate) 16 Gm [place].susp 2 [place] NS DAILY Reported Multivitamins (Multivitamin) 1 Each Tablet 1 Tab PO DAILY Diphenhydramine Hcl 25 Mg Tablet 25 Mg PO PRN B-12 (Cyanocobalamin (Vitamin B-12)) 1,000 Mcg Tablet 1,000 Mcg PO B-6 (Pyridoxine HCl (Vitamin B6)) 200 Mg Tablet.er 200 Mg PO Aleve (Naproxen Sodium) 220 Mg Capsule 220 Mg PO BID PRN MDD 3 tablets 14 Days Gabapentin 300 Mg Capsule 300 Mg PO TID Nexium Capsule (Esomeprazole Magnesium) 20 Mg Capsule.dr 20 Mg PO DAILYAC Aspirin 81 Mg Tab.chew 1 Tab PO DAILY Vitamin D (Cholecalciferol (Vitamin D3)) 1,000 Unit Capsule 1 Cap PO DAILY Vitals/I & O Vital Sign - Last 24 Hours 02/13/18 02/13/18 02/13/18 02/13/18 11:00 15:00 19:00 20:00 Temp 97.7 98.1 97.7 98.1 Pulse 54 61 Resp 16 24 B/P (MAP) 120/53 (75) 119/46 (70) Pulse Ox 97 96 O2 Delivery Room Air Room Air Room Air 02/13/18 02/13/18 02/14/18 02/14/18 20:14 22:57 02:32 07:00 Temp 98.5 97.7 97.7 97.7 98.5 97.7 97.7 97.7 Pulse 66 53 59 49 Resp 20 19 19 18 B/P (MAP) 162/55 (90) 121/58 (79) 108/55 (72) 116/41 (66) Pulse Ox 97 96 97 96 O2 Delivery Room Air BiPAP/CPAP BiPAP/CPAP Room Air Intake and Output 02/13/18 02/13/18 02/14/18 15:00 23:00 07:00 Intake Total 480 ml 200 ml 200 ml Output Total 350 ml Balance 480 ml 200 ml -150 ml ALTON MONTEZ MD Feb 14, 2018 08:38
[2018-02-14] MEDS: FLUTICASONE 50MCG/NASAL SPRAY 16GM BOTTLE. NS SCH (09:00)
[2018-02-14] MEDS: CYANOCOBALAMIN (VITAMIN B-12) 1,000 MCG TABLET. PO SCH (09:00)
[2018-02-14] MEDS: MULTIVITAMIN with MINERAL TABLET. PO SCH (09:00)
[2018-02-14] MEDS: ASPIRIN CHEWABLE 81 MG TABLET. PO SCH (09:00)
[2018-02-14] MEDS: GABAPENTIN 300 MG CAPSULE. PO SCH (09:00)
--- NOTE | 2018-02-14 11:50 | DS ---
DATE OF DISCHARGE: 02/14/2018 CHIEF COMPLAINT: Weakness. HISTORY OF PRESENT ILLNESS: The patient is a 77-year-old male who was brought to the Emergency Room with the above complaint. He reported that on the morning of admission, he fell to his knees beside his bed and was unable to get up by himself. This was unusual for him as he is usually independently ambulatory. Initial evaluation in the Emergency Room showed the patient to have an elevated temperature of 100.1. A CT of the head without contrast showed possible dilation of the ventricles. The patient was very unsteady on his feet in the Emergency Department and was unable to ambulate at all. He was admitted for further care. HOSPITAL COURSE: The patient was seen in consultation by Neurology and Cardiology. He continued to be febrile early in his hospital stay with a maximum fever of 102.4 axillary. His fever resolved and he has been afebrile for the past 36 hours. Blood cultures were drawn and are negative to date. A chest x-ray was clear and a urinalysis was without evidence of acute infection. Dr. Sandhu examined the patient and found him to have a significantly apraxic gait and weakness initially. An MRI of the brain showed chronic small vessel ischemic disease, but no acute abnormalities. An MRI of the cervical spine was done, which showed degenerative changes throughout with [id number] neural foraminal stenosis on several levels, but no significant central spinal canal stenosis. Carotid Dopplers were unremarkable. The patient's white blood cell count was elevated at admission at 11.8 with a left shift, this improved by the next day and his white blood count returned to normal. The patient's generalized weakness quickly improved by the time Physical Therapy saw him on the day after admission. He was able to ambulate with his usual gait, which does involve a mild shuffling to his feet, which is due to his chronic peripheral neuropathy. He was felt to be back at his baseline as far as his strength. Creatine kinase was significantly elevated at over 2000 initially, this has improved overnight, but it is still elevated at over 1400 today. This rhabdomyolysis was felt to be secondary to his fever as he did not have a period of prolonged immobility prior to admission. The sedimentation rate is completely normal. The patient is eating and drinking well and is advised to increase his oral fluids for a few days to help with this rhabdomyolysis. The patient has diet-controlled diabetes and his A1c was 5.5. He has allergic rhinitis and uses Flonase for this. The MRI of the brain did show some sinus congestion, but the patient had no complaints of sinus pain and therefore it does not appear an acute infection is present. He has obstructive sleep apnea and uses CPAP nightly for this. The patient has a history of prostate cancer. He has already received radiation treatment for this and is currently on Lupron injections per Urology. His vitamin D level was mildly low on the lab at 26. A vitamin D supplement is on his home medication, but he is not sure whether he is taking this, so he is advised to increase his [id number] vitamin D supplementation. Cardiology was consulted due to the presence of a right bundle-branch block on the patient's EKG. The patient was without any complaint of chest pain or palpitations. He is in sinus rhythm on telemetry. An echocardiogram was done, which showed a preserved ejection fraction of 50%-55% and was otherwise within normal limits. Dr. Sheppard felt that the patient did not need any further cardiac evaluation at this time. The patient feels much better and will be discharged home today. FINAL DIAGNOSES: 1. Sepsis with febrile illness. 2. Rhabdomyolysis. 3. Generalized weakness, resolved. 4. Vitamin D deficiency. 5. Diabetes mellitus type 2, diet controlled. 6. Right bundle-branch block. 7. Prostate cancer. 8. Peripheral neuropathy. DISCHARGE MEDICATIONS: Aspirin 81 mg daily, vitamin D3 1000 units daily, vitamin B12 daily, Benadryl 25 mg p.r.n., Nexium 20 mg daily, Flonase daily, gabapentin 300 mg t.i.d. FOLLOWUP: Followup is with Dr. Peter within 2 weeks. ALTON PETER MD DR: [facility]/sarah JOB#: [id number] / [id number] GWEN
[2018-02-15 03:16] LABS: COPPER LEVEL 92 ug/dL (72-166)
[2018-02-16 04:19] LABS: VITAMIN E(GAMMA TOCOPHEROL) 0.2 mg/L (0.5-4.9)
[2018-02-18 08:16] LABS: ANA INTERP Negative (.)
[2018-02-18 09:11] LABS: ALBUM 2.6 g/dL (2.9-4.4); ALPHA 1 0.3 g/dL (0.0-0.4); ALPHA 2 0.6 g/dL (0.4-1.0); BETA 0.7 g/dL (0.7-1.3); GAMMA 0.5 g/dL (0.4-1.8); PROTEIN TOTAL 4.8 g/dL (6.0-8.5); SPEP AG RATIO 1.2 (0.7-1.7)
== END 2018-02-14 10:20 | disposition home or self-care (01) ==
LOC: ER 10:29 → 6 SOUTH 14:25
PROVIDERS: ADMIT Family Medicine; ATTEND Family Medicine
DX: A41.9 Sepsis, unspecified organism (principal); E11.42 Type 2 diabetes mellitus with diabetic polyneuropathy; E11.51 Type 2 diabetes mellitus with diabetic peripheral angiopathy without gangrene; E55.9 Vitamin D deficiency, unspecified; E78.5 Hyperlipidemia, unspecified; E86.0 Dehydration; G47.33 Obstructive sleep apnea (adult) (pediatric); I10 Essential (primary) hypertension; I45.10 Unspecified right bundle-branch block; I65.29 Occlusion and stenosis of unspecified carotid artery; J30.9 Allergic rhinitis, unspecified; K21.9 Gastro-esophageal reflux disease without esophagitis; M47.812 Spondylosis without myelopathy or radiculopathy, cervical region; M48.02 Spinal stenosis, cervical region; M62.82 Rhabdomyolysis; C61 Malignant neoplasm of prostate; G93.41 Metabolic encephalopathy; E66.01 Morbid (severe) obesity due to excess calories; Z82.3 Family history of stroke; Z85.048 Personal history of other malignant neoplasm of rectum, rectosigmoid junction, and anus; Z85.46 Personal history of malignant neoplasm of prostate; Z86.010 Personal history of colon polyps; Z86.718 Personal history of other venous thrombosis and embolism; Z87.01 Personal history of pneumonia (recurrent); Z87.891 Personal history of nicotine dependence; Z90.49 Acquired absence of other specified parts of digestive tract; Z92.21 Personal history of antineoplastic chemotherapy; Z96.641 Presence of right artificial hip joint; Z68.42 Body mass index [BMI] 45.0-49.9, adult
CPT/HCPCS: 36415; 70450; 70551; 71045; 71046; 72141; 80048; 80061; 81001; 82306; 82525; 82550; 82607; 83036; 83605; 83735; 83880; 84100; 84165; 84443; 84446; 84484; 85007; 85025; 85651; 86038; 87040; 90471; 90756; 93005; 93306; 93880; 96361; 96374; 97110; 97161; 97166; 99285; G0378; G8978; G8979; G8980; G8987; G8988; G8989; J0610; J7030; J7040; G0379; Q2035

== ENCOUNTER → 2018-04-16 | Outpatient (CLI) | payer MEDICARE, OTHER ==
[~2018-04-16] MED LIST changes: +CYAN100072 PO; +DIPH25CA3 PO; +DIPH25TA24 PO; +FLUT16SP NS; -GABA-586 PO; +GABA300C18 PO; +MULT1TAB52 PO; +NAPR220C4 PO; +PYRI200T3 PO
== END | disposition home or self-care (01) ==
LOC: LAB 13:34
PROVIDERS: ATTEND Urology
DX: C61 Malignant neoplasm of prostate (principal)
CPT/HCPCS: 36415; 84153; G0103

== ENCOUNTER → 2021-03-18 | Outpatient (CLI) | payer MEDICARE ==
[2020-10-14 11:00] VITALS: BP 169/78
[~2021-03-18] MED LIST changes: +AMOX1TAB61 PO; +DIPH25CA23 PO; -DIPH25CA3 PO; +HYDR-2761 PO; +INDO25CA21 PO; +MULT-445 PO; -MULT1TAB52 PO; +PANT40TA77 PO
--- NOTE | 2021-03-18 16:45 | RAD ---
Three-phase bone scan Clinical indications: Right hip pain for one month. Had right hip replacement in 2007. COMPARISON: Radiographic study of the pelvis and right hip dated March 16, 2021. No previous bone s can available. TECHNIQUE: After IV infusion of 25 mCi of technetium 99m MDP, three-phase bone scan of both hips and the pelvis were performed. FINDINGS: No hyperemia of either hip is seen. There is activity overlying both sides of the pelvis in the anterior image which may represent radiotracer activity within both ureters. No abnormal blood p ool activity is seen overlying the right hip joint itself. On delayed images, photopenia of the right hip is seen corresponding to the right hip prosthesis. No abnormal radiotracer activity is seen invo lving either hip joint on the delayed images. There is activity seen involving both SI joints or late ral sacrum more so on the right side. In addition, there is activity seen involving the mid sacrum. F indings could reflect insufficiency fracture of the sacrum. In addition, there is radiotracer activit y involving the posterior spine at the L5-S1 level which may represent degenerative facet arthropathy or could represent spondylolysis of L5. These findings may be further evaluated with an MRI study of the sacrum which should include L5-S1. IMPRESSION: Abnormal radiotracer activity involving the sacrum and L5-S1 levels. Recommend noncontras t MRI study of the sacrum which should include L5-S1. No abnormal radiotracer uptake involving the right hip prosthesis area. Electronically signed by: Logan Rivera MD (03/18/2021 4:42 PM) [id number]
== END ==
LOC: NM 08:44
PROVIDERS: ATTEND Orthopaedic Surgery
DX: M25.551 Pain in right hip (principal)
CPT/HCPCS: 78315; A9503

== ENCOUNTER → 2021-03-31 | Outpatient (CLI) | payer MEDICARE ==
[2020-10-14 11:00] VITALS: BP 169/78
--- NOTE | 2021-03-31 15:21 | KCIC ---
EXAMINATION: Magnetic resonance imaging (MRI) of the lumbar spine without contrast 03/31/2021 1:15 PM HISTORY: Pain in the right hip TECHNIQUE: Multiplanar multi-weighted MRI of the lumbar spine was performed without intravenous contr ast using the standard lumbar spine protocol. Contrast information: None administered. COMPARISON: None available. FINDINGS: There is 3 mm retrolisthesis of T12 on L1. 3 mm retrolisthesis of L1 on L2. 4 mm retrolisthesis of L2 on L3. There is 6.5 mm anterolisthesis of L4 on L5. Vertebral body heights are maintained. No acute fracture. Conus medullaris terminates at T12-L1. Distal spinal cord signal intensity is normal in all sequences. Mild disc height loss at T12-L1, L1-L2 and L4-L5. Mild to moderate disc height loss at L3 -L4 with calcification of the disc space. Vacuum disc phenomenon identified at L4-L5 and L5-S1. Modic type I endplate degenerative changes are identified at T12-L1. Modic type II endplate degenerative c hanges are identified at L1-L2. Modic type I endplate degenerative changes are identified anteriorly at L4-L5 and L5-S1. Abdominal aorta is normal in caliber. No suspicious retroperitoneal abnormality. No suspicious sacral abnormality. T12-L1: There is a circumferential disc bulge with right far lateral disc protrusion. Mild facet arth ropathy. Moderate right and mild left neuroforaminal stenosis. Mild spinal canal stenosis. L1-L2: There is a circumferential disc bulge. Mild facet arthropathy with ligamentum flavum infolding . Severe right and moderate left neuroforaminal stenosis. Mild spinal canal stenosis. L2-L3: There is a circumferential disc bulge. Moderate facet arthropathy with compartment infolding. Moderate bilateral neuroforaminal stenosis. Moderate spinal canal stenosis and accessory bilateral li pomatosis. L3-L4: There is a posterior disc osteophyte complex. Severe facet arthropathy. Severe left and modera te right neural foraminal stenosis. There is narrowing the right lateral recess. Mild to moderate spi nal canal stenosis. L4-L5: There is a posterior discussed by complex. Severe facet arthropathy ligamentum flavum infoldin g. Severe left neural foraminal stenosis. Moderate right neural foraminal stenosis. Severe spinal can al stenosis. There is severe left lateral recess stenosis. L5-S1: Mild disc bulge with central disc protrusion. Severe facet arthropathy. Mild bilateral neural foraminal stenosis. No significant spinal canal stenosis. IMPRESSION: Moderate to advanced degenerative changes of the lumbar spine as described in detail above. Electronically signed by: Clari Sinha MD (03/31/2021 3:19 PM) [facility]
== END ==
LOC: KCIC MRI 12:52
PROVIDERS: ATTEND Orthopaedic Surgery
DX: M47.816 Spondylosis without myelopathy or radiculopathy, lumbar region (principal); M51.27 Other intervertebral disc displacement, lumbosacral region; M48.8X7 Other specified spondylopathies, lumbosacral region; M48.07 Spinal stenosis, lumbosacral region; M43.15 Spondylolisthesis, thoracolumbar region
CPT/HCPCS: 72148

== ENCOUNTER → 2021-04-06 | Outpatient (CLI) | payer MEDICARE ==
[2020-10-14 11:00] VITALS: BP 169/78
[~2021-04-06] MED LIST changes: +IOHEXOL 180 MG/ML 10 ML VIAL. ONE; +methylPREDNISolone ACETATE 40 MG/ML VIAL. ONE; +methylPREDNISolone ACETATE 80 MG/ML VIAL. ONE
--- NOTE | 2021-04-06 16:34 | PDOC1 ---
INITIAL PAIN CONSULT DATE OF SERVICE: DOS: DATE: 04/06/21 TIME: 16:25 CHIEF COMPLAINT: Chief Complaint: Low back and right lower extremity pain HISTORY OF PRESENT ILLNESS: 80-year-old male presents history of pain in the low back right lower extremity for many years worse over the past year or so not result of any specific injury or accident he is aware of is getting worse with time walking standing changing positions noticeable when he is on his feet mainly better with sitting or laying down generally does not awaken from sleep at night does not affect his bowel bladder control but does affect his body walking using a cane over the past week but is using a walker over the past few days patient reports he feels more stable with it although he does have his cane with him today patient reports getting worse with time with standing changing positions getting up from a seated position patient reports is constant sharp in the low back throbbing and shooting in the low back and legs more on the right side posterior gluteus lateral thigh anterior thigh patient reports intermittent intensity but always present radiating into the right leg is noted aching quality as well patient reports his disability rating 0-10 10 me the worst is a 3 with family home responsibilities and self-care 1 with family home responsibilities and life support activities 5 with social activity 3 with self-care to a sexual behavior. Patient did have MRI scan lumbar spine showing moderate to advanced degenerative changes with cervical disc bulges throughout with posterior disc osteophyte complex at L3-4 and L4-5 with severe facet arthropathy at both levels severe left and moderate right for neural foraminal stenosis L3-4 and severe spinal canal stenosis at L4-5 with a severe left neuroforaminal stenosis and moderate right neuroforaminal stenosis. Patient reports no loss of motor function but significant fatigability the right leg with ambulation and standing. Patient has tried Advil as well as Tylenol he takes them together it works somewhat better one of the other by themselves but still only decrease the pain by about 40 to 50%. Patient has had physical therapy he has had chiropractic treatment and is doing exercise currently without any significant reduction in the pain with any of these modalities thus far. PAST MEDICAL HISTORY: PMH: Sleep apnea, prostate cancer status post chemotherapy and radiation, dizziness, osteoarthritis PREVIOUS SURGERIES: Past Surgical Hx: Cataract extractions, colon resection, carpal tunnel repair, gastric bypass, right total hip replacement, cholecystectomy, hernia repair CURRENT MEDICATIONS: Current Meds: Active Scripts Medications Dose Route/Sig Max Daily Dose Days Date Category Hydrocodone-Apap 5-325 (Hydrocodone Bit/Acetaminophen) 1 Tab Tablet 1 Tab PO PRN Q6HRS PRN 10/14/20 Reported Augmentin 875-125 Tablet (Amoxicillin/Potassium Clav) 1 Each Tablet 1 Tab PO BID 10/14/20 Reported Pantoprazole Sodium (Pantoprazole Sodium) 40 Mg Tablet.dr 40 Mg PO DAILYAC 14 10/14/20 Rx Indomethacin 25 Mg Capsule 25 Mg PO BIDWMEALS 14 10/14/20 Rx Fluticasone Propionate Nasal Combs (Fluticasone Propionate) 16 Gm Combs.susp 2 Combs NS DAILY 02/13/18 Rx Multivitamins (Multivitamin) 1 Each Tablet 1 Tab PO DAILY 02/12/18 Reported Diphenhydramine Hcl 25 Mg Tablet 25 Mg PO PRN 02/12/18 Reported B-12 (Cyanocobalamin (Vitamin B-12)) 1,000 Mcg Tablet 1,000 Mcg PO 02/12/18 Reported B-6 (Pyridoxine HCl (Vitamin B6)) 200 Mg Tablet.er 200 Mg PO 02/12/18 Reported Gabapentin (Gabapentin) 300 Mg Capsule 300 Mg PO TID 03/26/17 Reported Vitamin D (Cholecalciferol (Vitamin D3)) 1,000 Unit Capsule 1 Cap PO DAILY 03/03/14 Reported ALLERGIES; Allergies: Coded Allergies: [id number] Reductase Inhibitor (Verified Allergy, Intermediate, body aches, 04/02/17) meperidine (Verified Allergy, Intermediate, Hallucinations, 04/02/17) FAMILY HISTORY: Family Hx: No major medical problems or conditions that he is aware of SOCIAL HISTORY: Social Hx: patient does not drink alcohol does not smoke not use any illegal illicit or recreational drugs is lives with his spouse lives locally in [facility] and is currently retired. REVIEW OF SYSTEMS: ROS: Positive for those items mentioned in history of present illness, all systems are reviewed, otherwise negative ,and are complete full and well-documented on patient's chart. PHYSICAL EXAM: VS: Blood pressure is 147/82 pulse 96 respirations 18 temperature 98.3 F height is 5 feet 3 inches weight is 2 4 0 pounds PE: PHYSICAL EXAMINATION: GENERAL: The patient is awake, alert, oriented, appropriate, very pleasant in demeanor, patient accompanied by his . HEENT: Shows normocephalic, atraumatic. Extraocular movements are intact and symmetrical. Oral cavity: Mucous membranes moist and pink. NECK: Shows anterior throat supple without palpable lymphadenopathy noted. Swallow reflex symmetrical. CHEST: Shows normal on inspection. Breath sounds are clear bilaterally, coarse and distant but no rales rhonchi or wheezes auscultated. HEART: Shows S1, S2 clear. No murmurs auscultated. ABDOMEN: Soft, nontender, nondistended, obese. No palpable organomegaly is noted. BACK: Shows spine grossly in the midline. Normal-appearing cervical lordotic curvature. There is slightly increased thoracic kyphosis, some flattening of the lumbar lordotic curvature. Lumbar paraspinous muscles show symmetrical on inspection, on palpation shows some moderate tenderness diffusely throughout the upper, middle and lower distribution of the paraspinous muscles bilaterally and also into the lower thoracic paraspinous musculature, firm and tender, but without specific trigger points, without radiation of pain. The patient has good rotational motion of the lumbar spine, both laterally as well as extension and flexion without significant difficulty. No tenderness over the spinous processes, sacrum or sacroiliac regions. EXTREMITIES: Lower extremities show deep tendon reflexes 2+ in the patellar and tendo calcaneus tendons. Motor exam is 4 on a scale of 5 with right dorsiflexion, extension, quadriceps and hamstring flexion and 5/5 on the left. Peripheral pulses are 1+ posterior tibial. No peripheral edema is noted bilaterally. Lower extremities are warm and dry to touch, equal in color and appearance. Straight leg raise noted to be positive on the right about 45 deg virgilio, left side is []. Gaenslen's and Herman's maneuvers are negative. The patient is able to stand, stand on his toes without significant difficulty loss of balance has some instability with putting all of his weight on his right lower extremity and is using a cane to ambulate with a significant favoring gait favoring the right lower extremity. SKIN: Shows warm and dry, good turgor. No edema. No sores, rashes or bruising throughout. IMPRESSION: Impression: 80-year-old male with long history low back and right lower extremity pain worse over the past year in a radicular fashion. MRI scan lumbar spine as noted Arthritis History of prostate cancer Sleep apnea Plan: Options were discussed with the patient patient spouse who accompanied him his visit today. We discussed medication management as well as conservative physical therapies and interventional techniques. Patient would like to pursue interventional techniques. We discussed a lumbar epidural steroid injection using description as well as anatomical models described procedure. Risks were discussed including but not limited to: Bleeding, infection, possibility of epidural hematoma and subsequent neurological compromise, dural puncture, headaches, spinal cord and/or nerve damage, side effects of steroid medication, and poor results regarding pain control. Patient understands and wished to pr oceed. Patient will return to the clinic in approximate 2 weeks for follow-up, was counseled as return appointment, Activella, and side effect to be aware of. Procedure is lumbar epidural steroid injection under local anesthetic using sterile prep and drape at the L4-5 level using C-arm fluoroscopic guidance in both AP and lateral views medications injected is 120 mg Depo-Medrol +10mL preservative-free normal saline and 2 mL contrast- condition at discharge is stable patient tolerated procedure well had no complications. MARTIN BARTLETT MD Apr 06, 2021 16:34
--- NOTE | 2021-04-06 16:35 | PDOC4 ---
Procedure Note: ICD 10 Code: ICD 10 Code: M54.16 M51.36 M4 8.06 Procedure Note: Patient was consented for lumbar epidural steroid injection with fluoroscopic guidance. Risks were discussed including but not limited to: Bleeding, infection, possibility of epidural hematoma and subsequent neurological compromise, dural puncture, headaches, spinal cord and/or nerve damage, side effects of steroid medication, and poor results regarding pain control. Patient understands and wished to proceed. Procedure is lumbar epidural steroid injection under local anesthetic using basilia rile prep and drape at the L4-5 level using C-arm fluoroscopic guidance in both AP and lateral views medications injected is 120 mg Depo-Medrol +10mL preservative-free normal saline and 2 mL contrast- condition at discharge is stable patient tolerated procedure well had no complications. MARTIN BARTLETT MD Apr 06, 2021 16:35
== END | disposition home or self-care (01) ==
LOC: PNCL 14:19
PROVIDERS: ATTEND Anesthesiology
DX: M51.16 Intervertebral disc disorders with radiculopathy, lumbar region (principal); M48.061 Spinal stenosis, lumbar region without neurogenic claudication; M79.604 Pain in right leg; G47.30 Sleep apnea, unspecified; M19.90 Unspecified osteoarthritis, unspecified site; I10 Essential (primary) hypertension; E78.00 Pure hypercholesterolemia, unspecified; E11.9 Type 2 diabetes mellitus without complications; E66.9 Obesity, unspecified; K21.9 Gastro-esophageal reflux disease without esophagitis; Z79.899 Other long term (current) drug therapy; Z90.49 Acquired absence of other specified parts of digestive tract; Z98.890 Other specified postprocedural states; Z88.8 Allergy status to other drugs, medicaments and biological substances; Z72.89 Other problems related to lifestyle; Z85.46 Personal history of malignant neoplasm of prostate
CPT/HCPCS: 62323; J1030; J1040; Q9965

== ENCOUNTER → 2021-08-11 | Outpatient (CLI) | payer MEDICARE ==
[2021-06-23 11:00] VITALS: BP 128/79
[~2021-08-11] MED LIST changes: +DOXY100T PO; -IOHEXOL 180 MG/ML 10 ML VIAL. ONE; -methylPREDNISolone ACETATE 40 MG/ML VIAL. ONE; -methylPREDNISolone ACETATE 80 MG/ML VIAL. ONE
--- NOTE | 2021-08-11 10:35 | RAD ---
PROCEDURE: US BREAST LT, MG DIAGNOSTIC BILAT HISTORY: The patient is 80 years old and is seen for Reason: BREAST LUMP LT BREAST X1 MONTH / Spl. In structions: / History: . COMPARISON: None. TECHNIQUE: CC and MLO views of both breasts were obtained. Images were processed by the [employer] computer-aided detection system. DENSITY: The breast tissue is predominantly fatty. FINDINGS: Right mammogram: Mild gynecomastia. No suspicious microcatheter tissue mass or architectural distorti on. Left mammogram: Minimal left gynecomastia. No suspicious mass, architectural distortion or microcalci fication. Left ultrasound: No mass, cyst or lymph node associated with patient's palpable concern at the 1:00 a nd 2:00 positions. IMPRESSION: 1. Benign findings. No evidence of malignancy. 2. No mammographic or ultrasound evidence of abnormality corresponding with patient's palpable kary rn. Recommend continued clinical follow-up and if interval growth imaging follow-up. BI-RADS category 2 Benign Electronically signed by: Mynor Sweeney DO (08/11/2021 10:33 AM) [id number]
== END ==
LOC: MAMMO 09:47
PROVIDERS: ATTEND Family Medicine
DX: N62 Hypertrophy of breast (principal)
CPT/HCPCS: 76641; 77066

== ENCOUNTER → 2021-10-18 | Outpatient (CLI) | payer MEDICARE ==
[2021-06-23 11:00] VITALS: BP 128/79
[~2021-10-18] MED LIST changes: +DEXAMETHASONE PRES.FREE 10 MG/ML VIAL. ONE; +IOHEXOL 180 MG/ML 10 ML VIAL. ONE
--- NOTE | 2021-10-18 15:43 | PDOC ---
Progress Note - Pain Clinic Date of Service: DOS: DATE: 10/18/21 TIME: 15:39 Diagnosis: Dx: Lumbar radiculopathy with lumbar degenerative disease and lumbar spinal stenosis History or Present Illness: HPI: 82-year-old male returns status post lumbar epidural steroid injection last seen April 06, 2021. Patient did very well with 100% improvement until about 2 weeks ago the pain began to return without any specific injury or accident but is now on the left lower extremity where previously was on the right lower extremity is now rating the posterior gluteus posterior thigh posterior calf lateral thigh anterior thigh medial thigh and medial lower leg on the left side but not the right patient reports is across the low back as well worse with walking standing changing position described as dull and tight in the back can be constant with standing and walking patient reports its a 4 to scale 10 at its worst 3 on average 3 to [place] is a 3 today better with sitting or laying down generally does not awaken from sleep at night. Patient reports initially doing much better after the injection increase in daily activities travel with greater ease and comfort and sleeping better but now the pain is returning and now again on the left side instead of the right side which is new for him. Patient reports no bowel or bladder incontinence no loss of motor function but significant fatigability of the left lower extremity with ambulation. Patient is walking with a cane in his right arm. Physical Exam: VS: Blood pressure is 161/56 pulse 77 respirations are 20 temperature 98.5 F height is 5 feet 5 inches weight is 244 pounds. PE: PHYSICAL EXAMINATION: GENERAL: The patient is awake, alert, oriented, appropriate, very pleasant in demeanor HEENT: Shows normocephalic, atraumatic. Extraocular movements are intact and symmetrical. Patient wearing eyeglasses. Oral cavity: Mucous membranes moist and pink. NECK: Shows anterior throat supple without palpable lymphadenopathy noted. Swallow reflex symmetrical. CHEST: Shows normal on inspection. Breath sounds are clear bilaterally, distant but no rales rhonchi or wheezes auscultated. HEART: Shows S1, S2 clear. No murmurs auscultated. ABDOMEN: Soft, nontender, nondistended. No palpable organomegaly is noted. BACK: Shows spine grossly in the midline. Normal-appearing cervical lordotic curvature. There is moderately increased thoracic kyphosis, some flattening of the lumbar lordotic curvature. Lumbar paraspinous muscles show symmetrical on inspection, on palpation shows some moderate tenderness diffusely throughout the upper, middle and lower distribution of the paraspinous muscles without specific trigger points, without radiation of pain. The patient has good rotational motion of the lumbar spine, both laterally as well as extension and flexion without significant difficulty. EXTREMITIES: Lower extremities show deep tendon reflexes 2 in the patellar and tendo calcaneus tendons. Motor exam is 4 on a scale of 5 with right dorsiflexion, extension, quadriceps and hamstring flexion and 4/5 on the left. Peripheral pulses are 1+ posterior tibial. No peripheral edema is noted bilaterally. Lower extremities are warm and dry to touch, equal in color and appearance. SKIN: Shows warm and dry, good turgor. No edema. No sores, rashes or bruising throughout. Procedure: Procedure: Options discussed with the patient. Patient's old chart was reviewed his current medication regimen updated current review of systems updated today as well. We will proceed with a lumbar epidural steroid injections today with fluoroscopic guidance. Risks were discussed including but not limited to: Bleeding, infection, possibility of epidural hematoma and subsequent neurological compromise, dural puncture, headaches, spinal cord and/or nerve damage, side effects of steroid medication, and poor results regarding pain control. Patient understands and wished to proceed. Patient will return to the clinic in approximately 2 weeks for follow-up, was counseled as to return appointment, activity level, and side effects to be aware of. Medication Injected: Med Injected: Procedure is lumbar epidural steroid injection under local anesthetic using sterile prep and drape at the L4-5 level using C-arm fluoroscopic guidance in both AP and lateral views medications injected is 20 mg dexamethasone +10mL preservative-free normal saline and 2 mL contrast- condition at discharge is stable patient tolerated procedure well had no complications. Condition at Discharge: Condition at Discharge: Condition at discharge stable, patient tolerated procedure well and had no complications. MARTIN BARTLETT MD October 18, 2021 15:43
--- NOTE | 2021-10-18 15:44 | PDOC4 ---
Procedure Note: ICD 10 Code: ICD 10 Code: M54.16 M51.36 M48.06 Procedure Note: Patient was consented for lumbar epidural steroid injection with fluoroscopic guidance. Risks were discussed including but not limited to: Bleeding, infection, possibility of epidural hematoma and subsequent neurological compromise, dural puncture, headaches, spinal cord and/or nerve damage, side effects of steroid medication, and poor results regarding pain control. Patient understands and wished to proceed. Next procedure is lumbar epidural steroid injection under local anesthetic using sterile prep and drape at the L4- 5 level using C-arm fluoroscopic guidance in both AP and lateral views medications injected is 20 mg dexamethasone +10mL preservative-free normal saline and 2 mL contrast- condition at discharge is stable patient tolerated procedure well had no complications. MARTIN BARTLETT MD October 18, 2021 15:44
== END | disposition home or self-care (01) ==
LOC: PNCL 14:08
PROVIDERS: ATTEND Anesthesiology
DX: M51.16 Intervertebral disc disorders with radiculopathy, lumbar region (principal); M48.061 Spinal stenosis, lumbar region without neurogenic claudication; I10 Essential (primary) hypertension; E78.00 Pure hypercholesterolemia, unspecified; E11.9 Type 2 diabetes mellitus without complications; E66.9 Obesity, unspecified; M19.90 Unspecified osteoarthritis, unspecified site; K21.9 Gastro-esophageal reflux disease without esophagitis; Z79.899 Other long term (current) drug therapy; Z98.890 Other specified postprocedural states; Z88.8 Allergy status to other drugs, medicaments and biological substances
CPT/HCPCS: 62323; J1100; Q9965